=== PATIENT | male | born 1930 | race Caucasian/White ===

== ENCOUNTER 2016-05-08 09:13 | Emergency (ER) | payer MEDICARE, MEDICAID ==
[~2016-05-08 09:13] MED LIST: ACET-1890 PO; AMLO5TAB2 PO; ATOR20TA65 PO; BISA10SU61 RC; CALC500T3 PO; CARV6.25 PO; CEPH500T PO; CLOP75TA3 PO; DOCU250C2 PO; GABA-500 PO; GLYC1SUP RC; HYDR-4003 PO; IPRA3AMP IH; ISOS30TA4 PO; MAGN400O4 PO; NA P133E23 RC; NEPHVIT PO; OXYC10TA8 PO; OXYC5TAB72 PO; PANT40TA2 PO; POLY17PO6 PO; SENN8.6C6 PO; SEVE800T7 PO; SYMINH IH; ZINC50TA4 PO; [UNRECOGNIZED DRUG - CODE] PO; [UNRECOGNIZED DRUG - CODE] PO; [UNRECOGNIZED DRUG - CODE] PO
[2016-05-08 09:26] VITALS: BP 165/65; RESP 16; O2SAT 97
--- NOTE | 2016-05-08 09:43 | ED.REPORT ---
HPI-General Illness Date of Service May 08, 2016 ED Provider: Liam Keller MD Patient is an 86 year old male who presents to the ED via EMS complaining of an episode of dysphagia onset this morning. He is giving conflicting reports about the incident. In his first description, he was eating a breakfast of oatmeal and toast when he couldn't swallow his breakfast. In his second description, he was getting ready to eat but hadn't yet started when he had trouble swallowing. He reports that he is feeling fine now and has had similar symptoms previously. He denies fever, throat pain, shortness of breath, or any other symptoms. He may have been coughing but is not sure. Patient is due for dialysis this morning. Per nursing staff, he could not swallow his pills this morning. He had a swallow evaluation done at [facility] a few days ago. Nursing Notes Stated Complaint: DIFFICULTY SWALLOWING Chief Complaint: ENT & Mouth Nursing Notes Reviewed: Yes ([employer], meds not reconciled) Allergies: Coded Allergies: No Known Allergies (Verified Allergy, Unknown, 01/11/15) Scheduled Amlodipine (Amlodipine) 5 Mg Tablet 5 MG PO BID Hold if BP<90/x, or P<50. Hold med x 1 dose. Aspirin (Lo-Dose Aspirin EC) 81 Mg Tablet.dr 162 MG PO DAILY Atorvastatin Calcium (Atorvastatin Calcium) 20 Mg Tablet 20 MG PO HS Budesonide/Formoterol 160-4.5 mcg Inh (Symbicort 160-4.5 mcg Inh) 1 Puff Inha 2 PUFF IH BID rinse and spit following use. Carvedilol (Coreg) 6.25 Mg Tablet 6.25 MG PO BID If BP<90/x, P<50, hold med x1 dose. Cephalexin (Cephalexin) 500 Mg Tablet 500 MG PO TID Clopidogrel Bisulfate (Plavix) 75 Mg Tablet 75 MG PO DAILY Cyanocobalamin (Vitamin B-12) 500 Mcg Tab 1,000 MCG PO DAILY Docusate Sodium (Docusate Sodium) 250 Mg Capsule 250 MG PO BID Gabapentin (Gabapentin) 100 Mg Capsule 100 MG PO BID Isosorbide MN ER (Isosorbide MN ER) 30 Mg Tab.er.24h 30 MG PO DAILY Nut.tx.impaired Renal Fxn,Soy (Nepro) 237 Ml Liquid 237 ML PO TID Pantoprazole DR (Protonix) 40 Mg Tablet.dr 40 MG PO DAILY Sennosides (Senna) 8.6 Mg Capsule 17.2 MG PO BID Sevelamer Carbonate (Renvela) 800 Mg Tablet 800 MG PO TID Vitamin B Complex/Vit C (Aurelia-Rustam Tablet) 1 Tab Tab 1 TAB PO DAILY Zinc Gluconate (Zinc) 50 Mg Tablet 50 MG PO DAILY oxyCODONE (oxyCODONE) 10 Mg Tablet 10 MG PO DAILY Scheduled PRN Acetaminophen (Tylenol) 325 Mg Tablet 325-650 MG PO Q4 PRN PRN For Pain 1 tablet every 4 hours as needed for pain 1-4/10. 2 tablets every 4 hours as needed for pain 5-1010. NTE 4grams/24hours. Bisacodyl (Dulcolax Rectal) 10 Mg Supp.rect 10 MG RC DAILY PRN PRN For Constipation if no BM x 12 shifts. Step 2 in bowel program. Calcium Carbonate (Calcium Carbonate) 500 Mg Tablet 1,000 MG PO Q4 PRN PRN For Indigestion Glycerin (Glycerin) 1 Each Supp.rect 1 EACH RC DAILY PRN PRN For Constipation Hydrocodone-Acetaminophen 5-325 mg (Hydrocodone-Acetaminophen 5-325 mg) 1 Each Tablet 1-2 EACH PO Q4-6H PRN PRN tooth pain Ipratropium/Albuterol Sulfate (Iprat-Albut 0.5-3(2.5) mg/3 mL Inhalant Soln) 3 Ml Ampul.neb 3 ML IH Q4 PRN PRN For Shortness of Breath Magnesium Hydroxide (Milk of Magnesia) 400 Mg/5 Ml Oral.susp 30 ML PO DAILY PRN PRN For Constipation if no BM x 9 shifts. Step 1 in bowel program. Na Phos,M-B/Na Phos,Di-Ba (Fleet Enema) 133 Ml Enema 133 ML RC DAILY PRN PRN For Constipation if no BM x 15 shifts. Step 3 in bowel program. Polyethylene Glycol 3350 (Miralax) 17 Gm Powd.pack 17 GM PO DAILY PRN PRN For Constipation oxyCODONE (oxyCODONE) 5 Mg Tablet 5 MG PO Q6 PRN PRN For Pain General Time Seen by MD: 09:25 Chief Complaint Other (Dysphagia) Hx Obtained From: Patient Arrived By: Ambulance Sudden in Onset?: Yes Onset Occurred: Just prior to arrival Similar Sx Previous: Yes Past Medical History Past Medical History Notes: PCP Dr. Siegel Past Medical History ESRD on dialysis M,W,F (AV fistula in LUE) TIA Peripheral Vascular Disease with bilateral Internal Carotid Artery disease COPD with severe emphysematous changes on chest CT in 06/2013 Chronic lung disease with fibrotic change specified in right chest on chest CT in 06/2013 CAD with h/o NSTEMI and 2 x drug-eluting stents placed in LAD on 05/26/[address] Clari Elizabeth -Echocardiogram performed 08/07/2013 showed an EF of 60-65%, and moderate dilatation of the left atrium Anemia of chronic disease secondary to renal failure Osteoporosis with pathological vertebral compression fractures. Urinary retention secondary to prostatism. Sepsis in 07/2013 Hyperlipidemia Hypertension Dementia possibly secondary to probable vascular dementia given h/o TIA Resting tremor Left hip fracture in 05/2013 Reports: Dementia Past Surgical History AV fistula in LUE Left hip fracture repair Family History noncontributory Smoking History Former Smoker Social History Patient is DNR with limited interventions per nae MAHONEY at [facility] Alcohol Use: Denies alcohol use Drug Use: Denies drug use Other Social History: Good social support, Lives [facility] [place] [facility], Local resident Ambulatory Status Independent Review of Systems Full Review of Systems Constitutional: Denies: Fever Ears / Nose / Throat: Denies: Throat pain Respiratory: Reports: Non-productive cough, Denies: Shortness of breath GI: Reports: Dysphagia Complete sys rev & neg: except as marked. Physical Exam Vital Signs Vital Signs Date Time Temp Pulse Resp B/P Pulse Ox O2 Delivery O2 Flow Rate FiO2 05/08/16 11:37 54 16 183/71 96 Room Air 05/08/16 09:26 36.4 56 16 165/65 97 Room Air Initial VS: Reviewed, Unavailable (none on chart, ordered), Vital signs normal General/Constitutional: Well-developed, Well-nourished Head / Eyes: Atraumatic, Normocephalic Neck: Full range of motion Respiratory: Breath sounds normal, Clear to auscultation Abdomen / GI: Soft, Non-tender Skin: Warm, Dry Cardiovascular: Heart rate NL Heart Sounds / Murmur: Positive: Murmur present... (III/) Wrist / Hand: Atraumatic Thrill in L wrist Neurologic: Speech NL Demented Re-Eval/Medical Decision Med Decision/Clinical Course This is an 86-year-old male who had a possible choking spell while eating his pills and breakfast this morning. Patient lives at [facility], has dementia and cannot give a useful history here. He has no complaints when I enter the room. He has normal vitals and no hypoxia.. There has been concerns about some dysphagia, and the patient's recently recovered from a right lower lobe pneumonia-to turns out the patient recently underwent a swallow study 2 days ago as an outpatient that revealed some vallecular pooling, but no mechanical stricture or obstruction. The speech recommendations also included follow-up with a dentist in improved dentures. It is not clear if the information had been conveyed back to the facility, as notes indicate the patient had been updated-but is not clear that his memory as such that it was his memory that was right upon to make sure the information got back to the facility. Here in the department the patient has no complaints and appears well. His lungs are clear. He is not febrile. He is not hypoxic. Therefore there are no findings to indicate a need for a chest radiograph or recurrent antibiotics at this time. Speech the pathology was consulted came and reevaluated him. They agree with the previous recommendations from a few days ago. The patient scheduled for routine dialysis today that appointment at [facility] was listed the patient to come to the ED for evaluation-call the [facility] dialysis [facility] and they are able to get him in at 12:30 PM today, so we are now arranging for transfer from the emergency department to dialysis-from dialysis the patient can return to the long term facility. Source of Hx: Old records Summary of Info: Swallow study results: EVALUATION RESULTS: This is a very pleasant 86-year-old male who is seen today for an outpatient modified barium swallow study. Patient noted to have a moderate oral and mild pharyngeal dysphagia characterized by difficulty with oral prep formation and anterior to posterior transit of bolus, pharyngeal residue in the valleculae with barium pill needing a followup liquid rinse to clear. No aspiration or penetration noted today. It is recommended this patient follow up with a dentist in order to realign dentures. Diet recommendation was a thin dysphagia mechanical soft diet secondary to ill-fitting dentures and difficulty with oral preparation and formation in anterior to posterior transit. Pills are recommended to be taken with multiple sips of thin liquid, one at a time or one at a time with puree in order to facilitate movement into the esophagus. The results of this evaluation were reviewed with this patient. The patient is in agreement with this plan. Tamera Gill QUALITY COMPLIANCE COORDINATOR 05/04/16 1105 Time of Eval: 10:19 Re-Evaluation/Progress Note: Rechecked patient. Discussed instructions for eating and plan for discharge to dialysis. Patient understands and agrees with plan. All questions addressed at this time. Nursing facility informed of plan. Differential Diagnosis: Negative: Abdominal pain, Acute coronary syndrome, Allergies, G-tube repair/replacement, Malingering, Pneumonia Counseled Regarding: Diagnosis, Need for follow-up, When/why to return to ED Discharge & Departure Primary Impression: Dysphagia Dysphagia type: unspecified Qualified Code: R13.10 - Dysphagia, unspecified Additional Impression: Chronic renal failure Chronic kidney disease stage: stage 5 Qualified Code: N18.5 - Chronic kidney disease, stage 5 Additional Instructions: 1. The patient was seen again in the emergency department by speech therapy for re-evaluation 2. Recent swallowing evaluation and swallow study performed a few days ago was reviewed (It revealed some vallecular pooling, but no mechanical obstruction or stricture) . Speech therapy's recommendations are: A) A thin mechanical soft diet. Pills are recommended to be taken with multiple sips of thin liquid or puree, one at a time to facilitate movement into the esophagus. B) is also strongly recommended the patient follow up with a dentist in order to realign the dentures, as they appear to be feeling poorly and are likely contributing. 3. Return if new or worsening symptoms Referrals: Divya Siegel MD (PCP) Scribe Attestation Portions of this note were transcribed by Malathi Lynn. I, Dr. Keller personally performed the history, physical exam and medical decision-making; I reviewed and confirmed the accuracy of the information in the transcribed note. Signed by: Malathi Lynn 05/08/16, 1020 copies to: Divya Siegel MD, Matthew F MD May 08, 2016 09:43 MALATHI LYNN May 08, 2016 09:44
--- NOTE | 2016-05-08 10:53 | NUR ---
Evaluation completed. Please go to "Notes" then click on "Assessments and Notes" (bottom left corner of screen). Then select appropriate discipline tab on top of screen.
[2016-05-08 11:37] VITALS: BP 183/71; PULSE 54; RESP 16; O2SAT 96
[2016-05-29] MEDS ORDERED: CYAN500 PO (09:20)
[2016-05-29] MEDS ORDERED: CARV3.122 PO (09:20)
[2016-05-29] MEDS ORDERED: ASPI-973 PO (09:20)
[2016-05-29] MEDS ORDERED: FRSM80T PO (09:20)
[2016-05-29] MEDS ORDERED: CETI5TAB28 PO (09:20)
[2016-05-29] MEDS ORDERED: GUAI-844 PO (10:46)
[2016-05-29] MEDS ORDERED: HYDR-3938 PO ×2 (10:47)
[2016-05-29] MEDS ORDERED: LACT1CAP65 PO (10:49)
[2016-05-29] MEDS ORDERED: AMIN30LI33 PO (10:50)
[2016-05-29] MEDS ORDERED: LISI-567 PO (10:51)
[2016-05-29] MEDS ORDERED: LOPE2TAB32 PO (10:52)
[2016-05-29] MEDS ORDERED: [UNRECOGNIZED DRUG - OTHER] PO (10:53)
[2016-05-29] MEDS ORDERED: NITR0.4T6 SL ×2 (10:54→10:55)
[2016-05-29] MEDS ORDERED: SENN-133 PO (10:59)
[2016-06-02] MEDS ORDERED: ASPI-973 PO (10:16)
[2016-06-02] MEDS ORDERED: PANT40TA2 PO (10:16)
[2016-06-02] MEDS ORDERED: LEVO500T16 PO (10:42)
[2016-06-02] MEDS ORDERED: LOSA50TA37 PO (13:17)
== END 2016-05-08 11:39 ==
LOC: EDBD 09:13 → SED 09:13
DX: R13.10 Dysphagia, unspecified (principal); I13.11 Hypertensive heart and chronic kidney disease without heart failure, with stage 5 chronic kidney disease, or end stage renal disease; N18.6 End stage renal disease; I25.10 Atherosclerotic heart disease of native coronary artery without angina pectoris; J44.9 Chronic obstructive pulmonary disease, unspecified; F03.90 Unspecified dementia, unspecified severity, without behavioral disturbance, psychotic disturbance, mood disturbance, and anxiety; E78.5 Hyperlipidemia, unspecified; Z99.2 Dependence on renal dialysis; Z86.73 Personal history of transient ischemic attack (TIA), and cerebral infarction without residual deficits; Z66 Do not resuscitate; Z79.82 Long term (current) use of aspirin; Z87.891 Personal history of nicotine dependence
CPT/HCPCS: 92610; 99283; G8996; G8997; G8998

== ENCOUNTER 2016-07-23 19:02 | Inpatient (IN) | payer MEDICARE, MEDICAID ==
[~2016-07-23] VITALS: Ht 172.7 cm; Wt 50.3 kg
[~2016-07-23 19:02] MED LIST changes: -ACET-1890 PO; +AMIN30LI33 PO; -AMLO5TAB2 PO; +ASPI-973 PO; -BISA10SU61 RC; -CALC500T3 PO; +CARV3.122 PO; -CARV6.25 PO; -CEPH500T PO; +CETI5TAB28 PO; -CLOP75TA3 PO; +CYAN500 PO; -DOCU250C2 PO; +FRSM80T PO; -GLYC1SUP RC; +GUAI-844 PO; +HYDR-3938 PO; -HYDR-4003 PO; +LACT1CAP65 PO; +LEVO500T16 PO; +LISI-567 PO; +LOPE2TAB32 PO; +LOSA50TA37 PO; -MAGN400O4 PO; -NA P133E23 RC; +NITR0.4T6 SL; -OXYC10TA8 PO; -OXYC5TAB72 PO; +SENN-133 PO; -SENN8.6C6 PO; -[UNRECOGNIZED DRUG - CODE] PO; -[UNRECOGNIZED DRUG - CODE] PO; -[UNRECOGNIZED DRUG - CODE] PO; +[UNRECOGNIZED DRUG - OTHER] PO
[2016-07-23 19:13] VITALS: BP 136/52; PULSE 77; RESP 26; O2SAT 95
--- NOTE | 2016-07-23 19:26 | ED.REPORT ---
HPI-Dyspnea / Wheezing Date of Service Jul 23, 2016 ED Provider: Truman Acuña DO Patient is an 86 year old male with a history of COPD, ERSD and reoccuring pneumonia who presents to the ED via EMS due to shortness of breath. Per senior care staff, the patient has had worsening dyspnea over the past few days. EMS found the patient with an O2 sat of 84% on room air, a fever and complaining of chills. The patient complains of glute pain. Patient currently receives dialysis. Nursing Notes Stated Complaint: GENERAL WEAKNESS Chief Complaint: Respiratory Distress Nursing Notes Reviewed: Yes Allergies: Coded Allergies: No Known Allergies (Verified Allergy, Unknown, 01/11/15) Scheduled ([carb steady liquid]) 1 CANNISTER PO DAILY Amino AC/Protein Hydr/Whey Pro (Liquacel Liquid Protein Packet) 16 Gram-90 Kcal/ 30 Ml Liquid.pkt 30 ML PO DAILY Aspirin (Aspirin) 81 Mg Tablet 81 MG PO DAILY Atorvastatin Calcium (Atorvastatin Calcium) 20 Mg Tablet 20 MG PO HS Budesonide/Formoterol 160-4.5 mcg Inh (Symbicort 160-4.5 mcg Inh) 1 Puff Inha 1 PUFF IH BID rinse and spit following use. Carvedilol (Carvedilol) 3.125 Mg Tablet 3.125 MG PO BID Cetirizine (Cetirizine) 5 Mg Tablet 10 MG PO QAM Cyanocobalamin (Vitamin B12) 500 Mcg Tablet 1,000 MCG PO QAM Gabapentin (Gabapentin) 100 Mg Capsule 100 MG PO BID Isosorbide MN ER (Isosorbide MN ER) 30 Mg Tab.er.24h 30 MG PO QAM Lactobacillus Acidophilus (Probiotic) 1 Each Capsule 1 EACH PO QAM Lisinopril (Lisinopril) 20 Mg Tablet 20 MG PO QAM HOLD FOR SBP < 100 MM HG Mirtazapine (Mirtazapine) 7.5 Mg Tablet 7.5 MG PO HS Pantoprazole DR (Protonix) 40 Mg Tablet.dr 40 MG PO BID Vitamin B Complex/Vit C (Aurelia-Rustam Tablet) 1 Tab Tab 1 TAB PO QAM Zinc Gluconate (Zinc) 50 Mg Tablet 50 MG PO QAM Scheduled PRN Guaifenesin/Dextromethorphan (Nicole-Tussin Dm Syrup) 100 Mg-10 Mg/5 Ml Syrup 5 ML PO Q4H PRN PRN For Cough Hydralazine (Hydralazine) 10 Mg Tablet 10 MG PO QID PRN PRN For HYPERtension Ipratropium/Albuterol Sulfate (Iprat-Albut 0.5-3(2.5) mg/3 mL Inhalant Soln) 3 Ml Ampul.neb 3 ML IH Q4 PRN PRN For Shortness of Breath Loperamide (Loperamide) 2 Mg Tablet 4 MG PO Q6H PRN PRN For Diarrhea or Loose Stool Nitroglycerin SL (Nitroglycerin SL) 0.4 Mg Tab.subl 0.4 MG SL Q5MIN PRN PRN For Chest Pain Polyethylene Glycol 3350 (Miralax) 17 Gm Powd.pack 17 GM PO DAILY PRN PRN For Constipation Sennosides (Senna) 8.6 Mg Tablet 17.2 MG PO BID PRN PRN For Constipation General Time Seen by MD: 19:26 Chief Complaint Shortness of breath Hx Obtained From: Patient, EMS Arrived By: Ambulance Sudden in Onset?: No Onset Occurred: 3 days ago Symptom Duration: Since onset Location: : None Radiation: : Does not radiate Recent Healthcare: Recent doctor visit, Recent hospitalization Similar Sx Previous: Yes Past Medical History Past Medical History Notes: PCP Dr. Siegel Technical Instructor Dr. Lowe CODE STATUS: DNAR, DNI Past Medical History ESRD on dialysis M,W,F (AV fistula in LUE) TIA Peripheral Vascular Disease with bilateral Internal Carotid Artery disease Stable angina COPD with severe emphysematous changes on chest CT in 06/2013 Chronic lung disease with fibrotic change specified in right chest on chest CT in 06/2013 CAD with h/o NSTEMI and 2 x drug-eluting stents placed in LAD on 05/26/[address] Clari Elizabeth -Echocardiogram performed 08/07/2013 showed an EF of 60-65%, and moderate dilatation of the left atrium Anemia of chronic disease secondary to renal failure Osteoporosis with pathological vertebral compression fractures. Urinary retention secondary to prostatism. Sepsis in 07/2013 Hyperlipidemia Hypertension Dementia possibly secondary to probable vascular dementia given h/o TIA Resting tremor Left hip fracture in 05/2013 Seasonal allergies Reports: GERD Reports: Dementia Past Surgical History AV fistula in LUE Left hip fracture repair Family History noncontributory Smoking History Former Smoker Social History Patient is DNR with limited interventions per nae MAHONEY at [facility] Alcohol Use: Denies alcohol use Drug Use: Denies drug use Other Social History: Good social support, Lives in senior care, Local resident Ambulatory Status Independent Review of Systems Constitutional: Reports: Chills, Fever, Weakness - generalized Respiratory: Reports: Dyspnea on exertion, Shortness of breath, Denies: Non-productive cough Cardiovascular: Denies: Chest pain Musculoskeletal: Reports: Extremity pain Complete sys rev & neg: except as marked. Physical Exam Initial Vital Signs Vital Signs (First) Date Time Temp Pulse Resp B/P Pulse Ox O2 Delivery O2 Flow Rate FiO2 07/23/16 19:13 37.6 77 26 136/52 95 Nasal Cannula 4 Initial VS: Reviewed Alertness: Positive: Somnolent Appearance / Presentation: Positive: Frail follow commands Neck: Atraumatic, Supple Respiratory / Chest: Atraumatic, No respiratory distress mild crackling in lungs Cardiovascular: Heart rate NL, Regular rhythm, Heart sounds NL Abdomen: Atraumatic, Soft, Non-tender Skin: Atraumatic, Color NL, No rash, Warm, Dry Neurologic: Oriented X3, Speech NL Head / Eyes: Atraumatic, Normocephalic, PERRL, EOMI Psychiatric: Affect NL, Mood NL Interpretation & Diagnostics Lab Results Interpretation Result Diagram: 07/23/16194407/23/161944 Test 07/23/16 19:45 White Blood Count 7.9th/mm3 (3.8-10.1) Red Blood Count 3.53mil/mm3 (4.40-5.80) Hemoglobin 11.0g/dL (13.8-17.2) Hematocrit 33.5% (41.0-50.0) Mean Corpuscular Volume 94.9fL (81-100) Mean Corpuscular Hemoglobin 31.2pg (27.0-35.0) Mean Corpuscular Hemoglobin Concent 32.8% (32.0-37.0) Red Cell Distribution Width 13.7% (12.3-15.4) Platelet Count 100bil/L (150-400) Neutrophils (%) (Auto) 75.8% (40-74) Lymphocytes (%) (Auto) 15.9% (14-46) Monocytes (%) (Auto) 5.3% (4-12) Eosinophils (%) (Auto) 2.3% (0-5) Basophils (%) (Auto) 0.6% (0-3) Sodium Level 131mEq/L (134-144) Potassium Level 4.3mEq/L (3.5-5.2) Chloride Level 91mEq/L (97-108) Carbon Dioxide Level 29mmol/L (18-29) Blood Urea Nitrogen 53mg/dL (8-27) Creatinine 4.50mg/dL (0.76-1.27) Estimat Glomerular Filtration Rate 13mL/min (>59) Glucose Level 109mg/dL (60-99) Lactic Acid Level 0.8mmol/L (0.4-2.0) Calcium Level 8.4mg/dL (8.5-10.1) Total Bilirubin 0.4mg/dL (0.0-1.2) Aspartate Amino Transf (AST/SGOT) 34U/L (0-50) Alanine Aminotransferase (ALT/SGPT) 20U/L (0-44) Alkaline Phosphatase 189U/L (25-160) Troponin T 0.133ug/L (0.0-0.011) Pro-B-Type Natriuretic Peptide 18324ph/mL (0-486) Total Protein 6.0g/dL (6.4-8.4) Albumin 3.0g/dL (3.4-5.0) Procalcitonin 0.33ng/mL (0.00-0.08) Hold Beck Top Tube Received (Received) ECG Interpretation ECG Interpretation: LBBB Time: 19:36 Normal ECG Interpretation: Normal rate (73), Normal sinus rhythm X-Ray Chest Interpretation Chest Xray Interpretation: IMPRESSION: 1. Bilateral pleural effusions, left greater than right, with compressive atelectasis or consolidation in the lung bases. 2. Increased pulmonary edema. Dictated by: Nate Zabala M.D. on 07/23/2016 at 21:32 Approved by: Nate Zabala M.D. on 07/23/2016 at 21:34 View: Portable, 1 view Interpretation / Wet Read by: Interpret - Radiologist Re-Eval/Medical Decision Med Decision/Clinical Course 86-year-old male was sent in for fever and hypoxia. He is found to be ill in appearance. He has crackly lungs bilaterally. He is slow to respond but he will wake up and answer questions. Diagnostics are consistent with pneumonia and pleural effusion. There is also in the morning of vascular congestion. Laboratory work showed chronic renal insufficiency and elevated pro calcitonin. He will be admitted to the hospitalist service. Broad spectrum antibiotics. Careful fluid resuscitation in the emergency department brought his blood pressure up nicely. He was admitted in stable condition. Re-Evaluation/Progress : Time of Eval: 22:27 Re-Evaluation/Progress Note: Discussed results and plan for admit. The patient understands and agrees to the plan. All questions were addressed. Consultation : Referral / Consult Name: Mari Estrada DO Consulted With: Hospitalist Call Returned at: 23:18 Armoured Car Escort: Agrees with eval, Agrees with plan, Accepts admit Counseled Regarding: Diagnosis, Lab results, Need for admission Discharge & Departure Impression: Primary Impression: Pneumonia Pneumonia type: due to unspecified organism Laterality: unspecified laterality Lung location: unspecified part of lung Qualified Code: J18.9 - Pneumonia, unspecified organism Additional Impression: Hypertension Hypertension type: unspecified secondary hypertension Qualified Code: I15.9 - Secondary hypertension, unspecified Disposition: ADMITTED TO HOSPITAL Discharge Condition All VS Reviewed: Yes Condition: Stable Referrals: Divya Siegel MD (PCP) Scribe Attestation Portions of this note were transcribed by Padmini Eastman. I, Dr. Acuña personally performed the history, physical exam and medical decision-making; I reviewed and confirmed the accuracy of the information in the transcribed note. Signed by: Padmini Austin, 07/23/16 and 2019 copies to: Divya Siegel MD, Todd P DO Jul 23, 2016 19:26 Liz Eastman Jul 23, 2016 20:17
[2016-07-23] MEDS ORDERED: Piperacillin-Tazo 3.375 Gm Inj 3.375 GM in Dextrose 5% Minibag Plus 50 ML IV ONE ×2 (19:40→21:05)
[2016-07-23 20:02] LABS: BASOPHILS % (AUTO) 0.6 % (0-3); NEUTROPHILS % (AUTO) 75.8 % (40-74)
[2016-07-23 20:07] LABS: EOSINOPHILS % (AUTO) 2.3 % (0-5); MONOCYTES % (AUTO) 5.3 % (4-12); Mean Corpuscular Hemoglobin 31.2 pg (27.0-35.0); Mean Corpuscular Volume 94.9 fL (81-100); Platelet Count 100 bil/L (150-400)
[2016-07-23 20:28] LABS: TROPONIN T 0.133 ug/L (0.0-0.011)
[2016-07-23 21:02] VITALS: BP 99/37; PULSE 68; RESP 22; O2SAT 95
[2016-07-23] MEDS ORDERED: 0.9% Sodium Chloride 500 ML IV ONE (21:05)
--- NOTE | 2016-07-23 21:36 | DRSVH ---
PROCEDURE: X-RAY CHEST ONE VIEW, PORTABLE ([id number]) INDICATIONS: SHORT OF BREATH TECHNIQUE: One view of the chest was acquired. COMPARISON: [facility], CR, XR CHEST 1VW (PORTABLE), 06/01/2016, 7:28. FINDINGS: Surgical changes and devices: None. Lungs and pleura: The patient's medial lung apices are partially obscured by neck soft tissues. The re are bilateral pleural effusions, small to moderate on the left on the right, with associated bibas ilar compressive atelectasis or consolidation. There is increased pulmonary vascular prominence comp atible with pulmonary edema. Mediastinum: Mediastinal contours appear unchanged. Heart size is enlarged. Bones and chest wall: No suspicious bony lesions. Overlying soft tissues appear unremarkable. IMPRESSION: 1. Bilateral pleural effusions, left greater than right, with compressive atelectasis or consolidati on in the lung bases. 2. Increased pulmonary edema. Dictated by: Nate Zabala M.D. on 07/23/2016 at 21:32 Approved by: Nate Zabala M.D. on 07/23/2016 at 21:34
[2016-07-23 21:46] VITALS: BP 118/33; PULSE 64; RESP 22; O2SAT 97
[2016-07-23 22:11] VITALS: BP 119/39; PULSE 69; RESP 20; O2SAT 99
[2016-07-23 22:39] VITALS: BP 120/47; PULSE 72; RESP 22; O2SAT 97
[2016-07-23] MEDS ORDERED: Alum-Mag Hydrox-Simeth 30 mL Suspension PO PRN ×2 (23:35→23:45)
[2016-07-23] MEDS ORDERED: Ondansetron 2 mg/mL 2 mL Inj IVPUSH PRN (23:35)
[2016-07-23] MEDS ORDERED: Polyethylene Glycol (PEG) 17 Gm Powder PO PRN (23:45)
[2016-07-23] MEDS ORDERED: MIRT7.5T8 PO (23:58)
[2016-07-23] MEDS ORDERED: LISI-567 PO (23:58)
[2016-07-24] VITALS (14 sets, daily range): BP systolic 102–175; BP diastolic 48–80; PULSE 69–86; RESP 16–36; O2SAT 84–95
--- NOTE | 2016-07-24 00:39 | PCM.HPMED ---
Subjective Date of Service Jul 24, 2016 Primary Provider: Admitting Physician: Mari Estrada DO Primary Care Physician: Divya Siegel MD Attending Physician: Mari Estrada DO Admit Status: From the Emergency Department Chief Complaint: Chills and Cough History of Present Illness: 86-year-old male with recent past medical history remarkable for erosive esophagitis and pneumonia in May 2016 presents with worsening cough for 2 days and subjective chills for 1 day from [facility]. The patient states that the cough is described as productive but he denies any chest pain or pain with inspiration. The patient cannot ascribe any changes to the sputum at this time. The patient states that he also began to notice chills beginning today. The patient is unaware of any recent fevers. The patient is on chronic home O2 therapy which is used sporadically throughout the day. The patient denies headache, sore throat, chest or abdominal pain, nausea vomiting or diarrhea. Review of Systems: A comprehensive review of systems was obtained and all are negative except for what is included in the HPI. Allergies Coded Allergies: No Known Allergies (Verified Allergy, Unknown, 01/11/15) Home Medications Aspirin (Aspirin) 81 MG PO DAILY Atorvastatin Calcium 20 MG PO HS Budesonide/Formoterol 160-4.5 mcg Inh (Symbicort 160-4.5 mcg Inh) 1 Puff Inha 1 PUFF IH BID Carvedilol 3.125 MG PO BID Cetirizine 10 MG PO QAM Cyanocobalamin 1,000 MCG PO QAM Gabapentin 100 MG PO BID Isosorbide MN ER 30 MG PO QAM Lactobacillus Acidophilus (Probiotic) 1 Each Capsule 1 EACH PO QAM Lisinopril (Lisinopril) 20 Mg Tablet 20 MG PO QAM HOLD FOR SBP < 100 MM HG Mirtazapine 7.5 MG PO HS Pantoprazole DR 40 MG PO BID Vitamin B Complex/Vit C (Aurelia-Rustam Tablet) 1 Tab Tab 1 TAB PO QAM Zinc Gluconate (Zinc) 50 Mg Tablet 50 MG PO QAM Guaifenesin/Dextromethorphan (Nicole-Tussin Dm Syrup) 100 Mg-10 Mg/5 Ml Syrup 5 ML PO Q4H PRN PRN For Cough Hydralazine 10 MG PO QID PRN For HYPERtension Ipratropium/Albuterol Sulfate 3 ML IH Q4 PRN For Shortness of Breath Loperamide 4 MG PO Q6H PRN PRN For Diarrhea or Loose Stool Nitroglycerin SL 0.4 MG SL Q5MIN PRN PRN For Chest Pain Polyethylene Glycol 17 GM PO DAILY PRN PRN For Constipation Sennosides 17.2 MG PO BID PRN PRN For Constipation [facility] Records indicate the patient is also on Lisinopril 5 mg daily Amlodipine 2.5 mg daily Carvedilol 6.25 mg daily Clopidogrel 75 mg daily PMH upper GI bleed with severe erosive esophagitis, Multiple esophageal ulcers in May 2016 acute encephalopathy, likely metabolic with infection, GIB mild troponemia secondary to ESRD Community acquired pneumonia May 2016 Hypertension uncontrolled ESRD on HD,M,W,F (AV fistula in LUE) History of TIA Peripheral Vascular Disease with bilateral Internal Carotid Artery disease Stable angina COPD with severe emphysematous changes on chest CT in 06/2013 Anemia of chronic disease secondary to renal failure Osteoporosis with pathological vertebral compression fractures. Urinary retention secondary to prostatism. Sepsis in 07/2013 Hyperlipidemia Dementia possibly secondary to probable vascular dementia given h/o TIA Resting tremor Left hip fracture in 05/2013 Seasonal allergies GERD Dementia Surgical History AV fistula in LUE Left hip fracture repair Family History Reports both parents are still alive in their 100s in [facility] 4 siblings including 2 brothers and 2 sisters with unknown health conditions Social History Occupation: retired Hx Alcohol Use: Yes ([employer] [facility]) Hx Substance Use: No Smoking Status: Former Smoker (Quit in 1975) Years of Smokin Living Arrangement: Assisted Facility ([place]) Exam Vital Signs Vital Sign - Last Date Time Temp Pulse Resp B/P Pulse Ox O2 Delivery O2 Flow Rate FiO2 07/24/16 00:01 69 07/23/16 22:39 36.6 22 120/47 97 Nasal Cannula 3 Intake and Output 07/23/16 07/23/16 07/24/16 Cumulative From/Thru 15:00 23:00 07:00 07/23/16 19:52 - 07/24/16 00:07 Intake Total 500 ml 500 ml Balance 500 ml 500 ml Intake IV Total 500 ml 500 ml Exam Gen.: elderly cachectic male in no acute distress lying comfortably in bed, Alert to self only, knows he is in [facility] and knows Matthieu Lara is the [facility], believes it is May 2016 Eyes: Pupils equal round and reactive to light, extraocular motion intact anicteric sclera noninjected conjunctiva HENT: Normocephalic atraumatic, moist mucous membranes without central cyanosis , with mild erythematous oropharynx without cobblestoning mucosa Neck: Supple, trachea midline, no JVD Cardiovascular: Regular rate and rhythm, no murmurs rubs or gallops noted, PMI nondisplaced Lungs: Decreased breath sounds in all lung meza worse in the bases with course expiratory rhonchi bilaterally clearing with cough without wheezing Abdomen: nontender, normal active bowel sounds, nondistended, tympanic to percussion Extremities: Pulses intact at radial and dorsalis pedis bilaterally, fistula noted in the left upper extremity with bruit and without overlying erythema or tenderness Skin: Warm and dry : No Virgen in place Neuro: No focal neurologic deficits Psych: Normal mood and affect Lab and Diagnostics Result Diagram: 07/23/16194407/23/161944 X-Rays, CTs and MRIs X-RAY CHEST ONE VIEW, PORTABLE IMPRESSION: 1. Bilateral pleural effusions, left greater than right, with compressive atelectasis or consolidation in the lung bases. 2. Increased pulmonary edema. Dictated by: Nate Zabala M.D. on 07/23/2016 at 21:32 Approved by: Nate Zabala M.D. on 07/23/2016 at 21:34 Cardiac Echo Impressions Echocardiogram Report from 06/02/2016 Interpretation Summary The ejection fraction is estimated to be 60-65%. The left atrium is severely dilated. The mitral valve leaflets appear mildly thickened, but open well. The aortic valve is slightly calcified. There is mild tricuspid regurgitation. The right ventricular systolic pressure is estimated at 50 mmHg assuming a right atrial pressure of 3 mm Hg. Compared to the prior echo exam, there has been an increase in the severity of pulmonary hypertension. Mildly increased echogenicity of the myocardium is noted, this can sometimes be seen in infiltrative disorders such as amyloidosis. Electronically signed by: Sacha Paul on Reading Physician:06/02/2016 04:43 PM Assessment & Plan 86-year-old male with recent past medical history remarkable for erosive esophagitis and pneumonia in May 2016 presents with worsening cough for 2 days and subjective chills for 1 day from [facility]. # Acute on chronic hypoxic respiratory failure - Patient describes chronic O2 therapy at home used sporadically throughout the day - Echo from 06/02/2016 shows worsening pulmonary hypertension - Report by ED physician notes and EMS found the patient in [place] with a oxygen saturation of 84% on room air - Records indicate the patient has severe COPD on imaging - Nursing to maintain oxygen saturation between 88% and 94% given severe COPD - Avoid oxygen saturation greater than 94% given likely a CO2 retainer # possible healthcare associated pneumonia - Patient was diagnosed with pneumonia in June 01, 2016 and placed on Levaquin - Chest x-ray shows possible bilateral basilar pneumonia left greater than right - Patient is currently negative for SIRS criteria with WBC count 7.9, temperature 37.6, heart rate of 76, respiratory rate 26 - Procalcitonin elevated but indeterminant at 0.33 - Patient started on Zosyn in the ED - Antibiotics to be converted to ceftriaxone 2 g every day and azithromycin 500 mg daily - Legionella urine antigen and strep urine antigen ordered - We will repeat CBC and pro-calcitonin daily # Chronic obstructive pulmonary disease and Chronic pulmonary hypertension - Patient reports subjective increased cough and productive sputum, physical exam fails to reveal wheezing - Continue patient's home Symbicort BID and DuoNeb's QIDWA # Erosive esophagitis - Noted on EGD in May 2016 consistent with either caustic or pill esophagitis on pathology - Continue pantoprazole 40 mg twice a day - Records indicate the patient will require follow up repeat EGD to confirm ulceration healing after August 31 # End stage renal disease - On chronic hemodialysis Sunday schedule - Fistula in left upper extremity appears uninfected - Explains elevated troponins which was previously elevated at last admission - Nephrology services consulted for routine hemodialysis while inpatient # Elevated troponin of unknown significance - Patient denies chest pain - Likely secondary to end-stage renal disease - Records indicate the patient had elevated troponin in May 2016 # Chronic anemia - Secondary to chronic kidney disease - likely near baseline at 11 - Monitor # Thrombocytopenia - Platelets currently 100,000 - near baseline - Monitor chronic conditions # Hyperlipidemia with Peripheral Vascular Disease with bilateral Internal Carotid Artery disease - Continue home Atorvastatin 20 mg at bedtime # Stable angina - Continue home isosorbide mononitrate 30 mg daily # Urinary retention secondary to prostatism. - Monitor I's and O's # Dementia possibly secondary to probable vascular dementia given h/o TIA - Continue Blood pressure control with carvedilol 3.125 mg twice a day and can increase to 6.25 mg twice a day once blood pressure stabilizes - Patient also has prescriptions for amlodipine and lisinopril which may be restarted with increased blood pressure - continue Aspirin therapy 81mg daily - Continue clopidogrel 75 mg daily GI prophylaxis: Protonix 40 mg twice a day DVT prophylaxis: Heparin 5000 units 3 times a day CODE STATUS: DNR/DNI The patient is admitted to inpatient status with likely inpatient stay greater than two midnights given presenting symptoms unlikely diagnosis, possible complications and required treatment. Pain Evaluation: Adequate Pain Control GI Prophylaxis: Proton Pump Inhibitor VTE Prophylaxis Indicated: Meets Criteria for Anticoag Therapy VTE Prophylaxis: Sub-Q Heparin (Unfractionated) Resuscitation Status: DNR/DNI:Do Not Resuscitate/Intubate Attending Statement The patient was seen and examined together with house staff on 07/23/2016 and I agree with the history, exam and plan as outlined in the note above. Fernando Lopez DO Jul 24, 2016 00:39 Mari Estrada DO Jul 24, 2016 06:54
[2016-07-24 02:30] LABS: Unsaturated Iron Binding 60.5 ug/dL
[2016-07-24 03:45] LABS: BASOPHILS % (AUTO) 0.5 % (0-3); EOSINOPHILS % (AUTO) 1.9 % (0-5); MONOCYTES % (AUTO) 4.6 % (4-12); Mean Corpuscular Hemoglobin 31.4 pg (27.0-35.0); Mean Corpuscular Volume 95.3 fL (81-100); NEUTROPHILS % (AUTO) 71.8 % (40-74); Platelet Count 116 bil/L (150-400)
[2016-07-24] MEDS ORDERED: 0.9% Sodium Chloride 250 ML ONE (07:41)
[2016-07-24] MEDS: Heparin 5,000 Unit/mL Inj SUBQ SCH ×3 (08:08→23:46)
[2016-07-24] MEDS: Fluticasone-Salmererol 250-50 Inhaler INHALATION SCH ×2 (08:08→21:28)
[2016-07-24] MEDS: Pantoprazole 40 mg ER24 Tablet PO SCH ×2 (08:30→21:28)
[2016-07-24] MEDS: Albuterol-Ipratropium 3 mL Inhalation Solution NEB SCH ×4 (09:24→20:33)
[2016-07-24] MEDS: cefTRIAXone Inj 2,000 MG in Dextrose 5% Minibag Plus 50 ML IV SCH (11:55)
--- NOTE | 2016-07-24 13:53 | PCM.CHPMED ---
Subjective Date of Service: Jul 24, 2016 Provider requesting consult: Francisco Boland MD Primary Physician: Admitting Physician: Mari Estrada DO Primary Care Physician: Divya Siegel MD Attending Physician: Mari Estrada DO Chief Complaint: Chief Complaint: Nephrology Service [facility] PGY2 and attending Francisco Cano Consultation: ESRD requiring hemodialysis History of Present Illness: Patient is an 86yom with MHx significant for dementia, severe COPD, pulmonary hypertension and CKD/hemodialysis presented overnight with cough, chills, hypoxic, and radiographic finding suspicious for pneumonia. Nephrology has been consulted for CKD/dialysis. Patient unable to recall significant health history and is a poor historian. He does confirms that he has been coughing for the past 2 days. Though, denies any fever, chills, or night sweats. Per chart review, patient has history of dysphagia, esophagitis on Protonix. He was recently admitted to [facility] 05/19 for pneumonia. Patient normally dialyzed MWF at [facility]. AV fistula left arm. Review of Systems: Constitutional: Reports: Sweats, Denies: Chills, Fever Cardiovascular: Denies: Chest Pain, SOB on Exertion, SOB while laying flat Respiratory: Reports: Cough, Sputum, Denies: Shortness of Breath Gastrointestinal: Denies: Abdominal Pain, Diarrhea Musculoskeletal: Denies: Back Pain, Swelling Neurological: Reports: Confusion, Denies: Localized Weakness, Numbness PMH Past Medical History Hypertension Dyslipidemia Left hip Fracture in 2013 Osteoporosis History of kidney infection ESRD on hemodialysis Sunday History of urinary retention secondary to prostatitis Severe esophagitis history of community-acquired pneumonia COPD with severe emphysematous type CAD status post stenting PVD with bilateral internal carotid artery disease Dysphagia GERD Chronic anemia, multifactorial Dementia History of TIA Resting tremor Surgical History The fistula in the left upper extremity List of fracture repair Allergies: Coded Allergies: No Known Allergies (Verified Allergy, Unknown, 01/11/15) Social History Occupation: retired Hx Alcohol Use: NoHx Substance Use: No Smoking Status: Former Smoker (Quit in 1975) Years of Smokin Living Arrangement: [facility] Facility ([place]) Exam Vital Signs Vital Sign - Last Date Time Temp Pulse Resp B/P Pulse Ox O2 Delivery O2 Flow Rate FiO2 07/24/16 13:02 75 6/12/17 09:24 20 90 Nasal Cannula 1.00 07/24/16 08:30 37.0 105/50 Intake and Output 07/23/16 07/23/16 07/24/16 Cumulative From/Thru 15:00 23:00 07:00 07/23/16 19:52 - 07/24/16 05:31 Intake Total 500 ml 500 ml Balance 500 ml 500 ml Intake IV Total 500 ml 500 ml General: Alert (oriented to place and self) Head: Normal Eyes: PERRLA, EOMI, Scleral Anicteric Mouth: Mucous Membranes Dry Neck: No Thyromegaly Chest & Lungs: Coarse breath sounds (bilateral in the lower basis) Cardiovascular: Regular Rate/Rhythm, Normal S1, Normal S2 Abdomen: Non-tender, Non-distended Genitourinary: Virgen Absent Extremities: No cyanosis/clubbing/edma bilat Skin: Other (positive skin turgor, suggestive of dehydration) Lab and Diagnostics Result Diagram: 07/24/16 0330 07/24/16 0330 X-Rays, CTs and MRIs PROCEDURE: X-RAY CHEST ONE VIEW, PORTABLE ([id number]) INDICATIONS: SHORT OF BREATH IMPRESSION: 1. Bilateral pleural effusions, left greater than right, with compressive atelectasis or consolidation in the lung bases. 2. Increased pulmonary edema. Dictated by: Nate Zabala M.D. on 07/23/2016 at 21:32 Assessment & Plan Assessment Pt 86yom with MHx significant for dementia, dysphagia, severe COPD and CKD on HD admitted for pneumonia. Problem list # Chronic kidney disease on hemodialysis # Normocytic anemia, multifactorial # Hypertension with hypertensive nephrosclerosis. # Chronic obstructive pulmonary disease # Hospital-acquired pneumonia Plan # Dialysis today, no fluid removal as patient is likely volume depleted # Next HD on Sunday. # Renally dose medications. Patient was seen and examined. Case discussed with resident. Agreed with assessment and plan as above. Thank you for allowing me to participate in the care of your patient. Danny Matthews MD Pg [phone] Problems: Pain Evaluation: Adequate Pain Control GI Prophylaxis: Proton Pump Inhibitor VTE Prophylaxis Indicated: Meets Criteria for Anticoag Therapy VTE Prophylaxis: Sub-Q Heparin (Unfractionated) VTE Mechanical Devices: Intermittant Pneumatic CD Resuscitation Status: DNR/DNI:Do Not Resuscitate/Intubate Shade Mak DO Jul 24, 2016 13:53 Francisco Boland MD Jul 24, 2016 19:02
--- NOTE | 2016-07-24 16:28 | PCM.PNMED ---
Subjective Date of Service Jul 24, 2016 Subjective He is very somnolent really answers very few questions other than denying pain. He denies any shortness of breath as well. No overnight events. Exam Vital Signs Vital Sign - Last Date Time Temp Pulse Resp B/P Pulse Ox O2 Delivery O2 Flow Rate FiO2 07/24/16 16:02 36.7 81 36 163/70 91 Nasal Cannula 1.00 Intake and Output 07/23/16 07/23/16 07/24/16 Cumulative From/Thru 15:00 23:00 07:00 07/23/16 19:52 - 07/24/16 05:31 Intake Total 500 ml 500 ml Balance 500 ml 500 ml Intake IV Total 500 ml 500 ml Exam Patient is chronically ill. Cachectic. Lethargic. Lungs are clear to auscultation with normal effort. Heart is regular with a 3/6 systolic murmur. Abdomen is flat and nontender Extremities are free of edema with good pedal pulses. Patient has multiple ecchymosis. IVs and Medications Medications Reviewed: Medications were reviewed in detail Lab and Diagnostics Result Diagram: 07/24/16 0330 07/24/16 0330 X-Rays, CTs and MRIs X-RAY CHEST ONE VIEW, PORTABLE IMPRESSION: 1. Bilateral pleural effusions, left greater than right, with compressive atelectasis or consolidation in the lung bases. 2. Increased pulmonary edema. Dictated by: Nate Zabala M.D. on 07/23/2016 at 21:32 Approved by: Nate Zabala M.D. on 07/23/2016 at 21:34 Cardiac Echo Impressions Echocardiogram Report from 06/02/2016 Interpretation Summary The ejection fraction is estimated to be 60-65%. The left atrium is severely dilated. The mitral valve leaflets appear mildly thickened, but open well. The aortic valve is slightly calcified. There is mild tricuspid regurgitation. The right ventricular systolic pressure is estimated at 50 mmHg assuming a right atrial pressure of 3 mm Hg. Compared to the prior echo exam, there has been an increase in the severity of pulmonary hypertension. Mildly increased echogenicity of the myocardium is noted, this can sometimes be seen in infiltrative disorders such as amyloidosis. Electronically signed by: Sacha Paul on Reading Physician:06/02/2016 04:43 PM Assessment & Plan 86-year-old male with recent past medical history remarkable for erosive esophagitis and pneumonia in May 2016 presents with worsening cough for 2 days and subjective chills for 1 day from [facility]. # Acute on chronic hypoxic respiratory failure, POA. - Patient describes chronic O2 therapy at home used sporadically throughout the day - Echo from 06/02/2016 shows worsening pulmonary hypertension - Report by ED physician notes and EMS found the patient in [place] with a oxygen saturation of 84% on room air - Records indicate the patient has severe COPD on imaging - Nursing to maintain oxygen saturation between 88% and 94% given severe COPD - Avoid oxygen saturation greater than 94% given likely a CO2 retainer No changes to this plan. The patient was dialyzed and this helps with any fluid overload component. # possible community-acquired pneumonia versus aspiration., POA. - Patient was diagnosed with pneumonia in June 01, 2016 and placed on Levaquin - Chest x-ray shows possible bilateral basilar pneumonia left greater than right - Patient is currently negative for SIRS criteria with WBC count 7.9, temperature 37.6, heart rate of 76, respiratory rate 26 - Procalcitonin elevated but indeterminant at 0.33 - Patient started on Zosyn in the ED - Antibiotics to be converted to ceftriaxone 2 g every day and azithromycin 500 mg daily - Legionella urine antigen and strep urine antigen ordered - We will repeat CBC and pro-calcitonin daily No changed antibodies, follow clinically. # Chronic obstructive pulmonary disease and Chronic pulmonary hypertension, POA. No evidence of exacerbation. - Patient reports subjective increased cough and productive sputum, physical exam fails to reveal wheezing - Continue patient's home Symbicort BID and DuoNeb's QIDWA # Erosive esophagitis, chronic POA. - Noted on EGD in May 2016 consistent with either caustic or pill esophagitis on pathology - Continue pantoprazole 40 mg twice a day - Records indicate the patient will require follow up repeat EGD to confirm ulceration healing after August 31 # End stage renal disease, hemodialysis dependent. POA. - On chronic hemodialysis Sunday schedule - Fistula in left upper extremity appears uninfected - Explains elevated troponins which was previously elevated at last admission - Nephrology services consulted for routine hemodialysis while inpatient # Elevated troponin of unknown significance, POA. - Patient denies chest pain - Likely secondary to end-stage renal disease - Records indicate the patient had elevated troponin in May 2016 # Chronic anemia, POA. - Secondary to chronic kidney disease - likely near baseline at 11 - Monitor # Thrombocytopenia - Platelets currently 100,000 - near baseline - Monitor chronic conditions # Hyperlipidemia with Peripheral Vascular Disease with bilateral Internal Carotid Artery disease - Continue home Atorvastatin 20 mg at bedtime # Stable angina, POA - Continue home isosorbide mononitrate 30 mg daily # Urinary retention secondary to prostatism. - Monitor I's and O's # Dementia possibly secondary to probable vascular dementia given h/o TIA - Continue Blood pressure control with carvedilol 3.125 mg twice a day and can increase to 6.25 mg twice a day once blood pressure stabilizes - Patient also has prescriptions for amlodipine and lisinopril which may be restarted with increased blood pressure - continue Aspirin therapy 81mg daily - Continue clopidogrel 75 mg daily GI prophylaxis: Protonix 40 mg twice a day DVT prophylaxis: Heparin 5000 units 3 times a day CODE STATUS: DNR/DNI The patient is admitted to inpatient status with likely inpatient stay greater than two midnights given presenting symptoms unlikely diagnosis, possible complications and required treatment. GI Prophylaxis: Proton Pump Inhibitor VTE Prophylaxis: Sub-Q Heparin (Unfractionated) VTE Mechanical Devices: Intermittant Pneumatic CD Resuscitation Status: DNR/DNI:Do Not Resuscitate/Intubate Daron Jaime MD Jul 24, 2016 16:28
[2016-07-24] MEDS: Isosorbide Mononitrate 30 mg ER24 Tablet PO SCH (17:00)
[2016-07-25] VITALS (13 sets, daily range): BP systolic 85–141; BP diastolic 41–65; PULSE 63–73; RESP 16–44; O2SAT 92–95
[2016-07-25] MEDS: Albuterol-Ipratropium 3 mL Inhalation Solution NEB SCH ×4 (07:39→19:24)
[2016-07-25] MEDS: Isosorbide Mononitrate 30 mg ER24 Tablet PO SCH (08:30)
[2016-07-25] MEDS: cefTRIAXone Inj 2,000 MG in Dextrose 5% Minibag Plus 50 ML IV SCH (09:38)
[2016-07-25] MEDS: Heparin 5,000 Unit/mL Inj SUBQ SCH ×2 (09:38→16:53)
[2016-07-25] MEDS: Fluticasone-Salmererol 250-50 Inhaler INHALATION SCH ×2 (09:39→20:36)
[2016-07-25] MEDS: Pantoprazole 40 mg ER24 Tablet PO SCH ×2 (09:40→20:36)
[2016-07-25 10:15] LABS: Magnesium 1.6 mg/dL (1.6-2.6)
--- NOTE | 2016-07-25 11:01 | PCM.CONPAL ---
Date of Service Jul 25, 2016 Date of Hospital Admission: Jul 23, 2016 at 22:17 Date of Palliative Consult: Jul 25, 2016 Requesting Provider: Jeffrey Dominguez MD Reason Palliative Care Consult: Goals of Care Discussion Hospital Unit @time of consult: Progressive Care Palliative Care Recommendation 86-year-old gentleman with advanced COPD, ESRD on HD, recent hospitalization with erosive esophagitis and pneumonia, ASPVD, progressive dementia, etc. admitted now with acute on chronic respiratory failure secondary to probable pneumonia Palliative medicine consulted to assist in determination of goals of care Summary of palliative recommendations: -Symptom management (Pain/other)- appears comfortable at this time. Continued management per medicine service. Consider low dose IV morphine (2-4 mg) as needed for relief of dyspnea/air hunger. Also consider low-dose long-acting morphine or methadone for chronic use for relief of dyspnea/air hunger. -DPOA/Advanced Directives/POLST- DO NOT RESUSCITATE/DO NOT INTUBATE/limited interventions per ER note (apparently they were able to review his POLST though I cannot find a copy in his chart today. I have called to [facility] and they will fax over a copy of the current POLST). Review wishes further with family and patient in the coming days. -Family/emotional support- palliative will continue to follow Additional Medical Diagnoses with primary management by Hospitalist team include : # Acute on chronic hypoxic respiratory failure, POA. # possible community-acquired pneumonia versus aspiration., POA. # Chronic obstructive pulmonary disease and Chronic pulmonary hypertension, POA. No evidence of exacerbation. # Erosive esophagitis, chronic POA. # End stage renal disease, hemodialysis dependent. POA. # Elevated troponin of unknown significance, POA. # Chronic anemia, POA. # Thrombocytopenia chronic conditions # Hyperlipidemia with Peripheral Vascular Disease with bilateral Internal Carotid Artery disease # Stable angina, POA # Urinary retention secondary to prostatism. # Dementia possibly secondary to probable vascular dementia given h/o TIA Problems: End of Life Preferences DO NOT RESUSCITATE/DO NOT INTUBATE/limited interventions for now pending further review with patient and family Disposition Probable return to SNF Resuscitation Status Resuscitation Status: DNR/DNI:Do Not Resuscitate/Intubate POLST Updates/Changes Previous POLST?: Yes POLST Last Review Date: Jul 25, 2016 POLST Review Outcome: No Change . Advanced Care Planning Address: POLST Pain: None Symptom management: Drowsiness/sleepiness, Dyspnea Pt History History of Present Illness Per admission H&P: 86-year-old male with recent past medical history remarkable for erosive esophagitis and pneumonia in May 2016 presents with worsening cough for 2 days and subjective chills for 1 day from [facility]. The patient states that the cough is described as productive but he denies any chest pain or pain with inspiration. The patient cannot ascribe any changes to the sputum at this time. The patient states that he also began to notice chills beginning today. The patient is unaware of any recent fevers. The patient is on chronic home O2 therapy which is used sporadically throughout the day. The patient denies headache, sore throat, chest or abdominal pain, nausea vomiting or diarrhea. Palliative medicine consulted to assist patient and family in determination of goals of care. Prior to visiting, I reviewed his records in the EMR in detail, going back through his hospitalizations in 2013. Spoke with his bedside nurse. Attempted to call all listed family members and contacts without success. Nursing reports there have been no visitors or family at bedside thus far, and no additional contact information is on the white board. Social work notes from previous admissions indicated that primary contact was patient's daughter Genna House who resides in [place] ([phone]) On my arrival, the patient is lying in bed, deeply sleeping but arousable. He did not wish to talk. I talked with speech therapy who had just been in to see him- he had been uncooperative and unwilling to complete his swallow evaluation but apparently was able to take couple mouthfulls of pudding. Denies any significant distress at the moment. Unable/unwilling to provide additional history or information. Past Medical History Significant PMH Noted: Upper GI bleed with severe erosive esophagitis, Multiple esophageal ulcers in May 2016 Acute encephalopathy, likely metabolic with infection, GIB Mild troponemia secondary to ESRD Community acquired pneumonia May 2016 Hypertension uncontrolled ESRD on HD,M,W,F (AV fistula in LUE) History of TIA Peripheral Vascular Disease with bilateral Internal Carotid Artery disease Stable angina COPD with severe emphysematous changes on chest CT in 06/2013 Anemia of chronic disease secondary to renal failure Osteoporosis with pathological vertebral compression fractures. Urinary retention secondary to prostatism. Sepsis in 07/2013 Hyperlipidemia Dementia possibly secondary to probable vascular dementia given h/o TIA Resting tremor Left hip fracture in 05/2013 Seasonal allergies GERD Dementia Surgical History AV fistula in LUE Left hip fracture repair Social History Occupation: Retired; resides at [facility] Family Members Issues: Contacts: daughter Genna House (lives in [place]) and is primary contact/decision-maker per records and prior hospitalizations [phone] daughter Cassia Barrett [phone] friend Kaylan Oleary [phone] Living Situation: As above Palliative Performance Scale PPS Patient Status: Baseline PPS Ambulation: Mainly Sit/Lie PPS Activity: Unable to do most activity PPS Self-Care: Considerable assistance required PPS Intake: Normal or reduced PPS Conscious Level: Full or confusion Performance Scale: 40% POLST at Time of Admission Previous POLST?: Yes (by report in ER note; contacted [facility] by phone and requested a fax copy of POLST) POLST Last Review Date: Jul 25, 2016 Cardiopulmonary Resuscitation: DNR: Do Not Attempt Resuscitation Medical Interventions: Limited Additional Interventions POLST Status: No change from last encounter Allergy Allergies Reviewed: Yes Medications Current Medications: Current Medications Al Hydrox/Mg Hydrox/Simethicone 30 ml Q6 PRN PO; Start 07/23/16 at 23:35; Stop 07/23/16 at 23:52; Status DC Ondansetron HCl Dose range: 4 mg to 8 mg Q4H PRN IVPUSH; Start 07/23/16 at 23: 35 Acetaminophen 975 mg Q6H PRN PO; Start 07/23/16 at 23:35 Al Hydrox/Mg Hydrox/Simethicone 30 ml Q6H PRN PO; Start 07/23/16 at 23:45; Stop 07/23/16 at 23:52; Status DC Senna 17.2 mg BID PRN PO; Start 07/23/16 at 23:45 Polyethylene Glycol 17 gm DAILY PRN PO; Start 07/23/16 at 23:45 Aspirin 81 mg DAILY PO Last administered on 07/25/16 09:49; Admin Dose 81 MG; Start 07/24/16 at 08:30 Atorvastatin Calcium 20 mg HS PO Last administered on 07/24/16 21:28; Admin Dose 20 MG; Start 07/24/16 at 21:00 Salmeterol Xinafoate/ Fluticasone 1 puff BID INHALATION Last administered on 09:39; Admin Dose 1 PUFF; Start 07/24/16 at 08:30 Carvedilol 3.125 mg BID PO Last administered on 07/24/16 21:28; Admin Dose 3.125 MG; Start 07/24/16 at 08:30 Gabapentin 100 mg BID PO Last administered on 07/25/16 09:40; Admin Dose 100 MG ; Start 07/24/16 at 08:30 Isosorbide Mononitrate 30 mg DAILY PO Last administered on 07/24/16 17:00; Admin Dose 30 MG; Start 07/24/16 at 08:30 Pantoprazole 40 mg 40 mg BID PO Last administered on 07/25/16 09:40; Admin Dose 40 MG; Start 07/24/16 at 08:30 Ceftriaxone Sodium/Dextrose/ Water 50 ml @ 100 mls/hr Q24H IV Last administered on 07/25/16 09:38; Admin Dose 100 MLS/HR; Start 07/24/16 at 08:30 Azithromycin 500 mg DAILY PO Last administered on 07/25/16 09:41; Admin Dose 500 MG; Start 07/24/16 at 08:30 Albuterol/ Ipratropium 3 ml QIDWA NEB Last administered on 07/25/16 07:39; Admin Dose 3 ML; Start 07/24/16 at 06:00 Heparin Sodium (Porcine) 5,000 unit Q8 SUBQ Last administered on 07/25/16 09:38 ; Admin Dose 5,000 UNIT; Start 07/24/16 at 08:30 Clopidogrel Bisulfate 75 mg DAILY PO Last administered on 07/25/16 09:41; Admin Dose 75 MG; Start 07/24/16 at 08:30 Scheduled ([carb steady liquid]) 1 CANNISTER PO DAILY Amino AC/Protein Hydr/Whey Pro (Liquacel Liquid Protein Packet) 16 Gram-90 Kcal/ 30 Ml Liquid.pkt 30 ML PO DAILY Aspirin (Aspirin) 81 Mg Tablet 81 MG PO DAILY Atorvastatin Calcium (Atorvastatin Calcium) 20 Mg Tablet 20 MG PO HS Budesonide/Formoterol 160-4.5 mcg Inh (Symbicort 160-4.5 mcg Inh) 1 Puff Inha 1 PUFF IH BID rinse and spit following use. Carvedilol (Carvedilol) 3.125 Mg Tablet 3.125 MG PO BID Cetirizine (Cetirizine) 5 Mg Tablet 10 MG PO QAM Cyanocobalamin (Vitamin B12) 500 Mcg Tablet 1,000 MCG PO QAM Gabapentin (Gabapentin) 100 Mg Capsule 100 MG PO BID Isosorbide MN ER (Isosorbide MN ER) 30 Mg Tab.er.24h 30 MG PO QAM Lactobacillus Acidophilus (Probiotic) 1 Each Capsule 1 EACH PO QAM Lisinopril (Lisinopril) 20 Mg Tablet 20 MG PO QAM HOLD FOR SBP < 100 MM HG Mirtazapine (Mirtazapine) 7.5 Mg Tablet 7.5 MG PO HS Pantoprazole DR (Protonix) 40 Mg Tablet.dr 40 MG PO BID Vitamin B Complex/Vit C (Aurelia-Rustam Tablet) 1 Tab Tab 1 TAB PO QAM Zinc Gluconate (Zinc) 50 Mg Tablet 50 MG PO QAM Scheduled PRN Guaifenesin/Dextromethorphan (Nicole-Tussin Dm Syrup) 100 Mg-10 Mg/5 Ml Syrup 5 ML PO Q4H PRN PRN For Cough Hydralazine (Hydralazine) 10 Mg Tablet 10 MG PO QID PRN PRN For HYPERtension Ipratropium/Albuterol Sulfate (Iprat-Albut 0.5-3(2.5) mg/3 mL Inhalant Soln) 3 Ml Ampul.neb 3 ML IH Q4 PRN PRN For Shortness of Breath Loperamide (Loperamide) 2 Mg Tablet 4 MG PO Q6H PRN PRN For Diarrhea or Loose Stool Nitroglycerin SL (Nitroglycerin SL) 0.4 Mg Tab.subl 0.4 MG SL Q5MIN PRN PRN For Chest Pain Polyethylene Glycol 3350 (Miralax) 17 Gm Powd.pack 17 GM PO DAILY PRN PRN For Constipation Sennosides (Senna) 8.6 Mg Tablet 17.2 MG PO BID PRN PRN For Constipation Objective Findings Exam Vital Sign - Last Date Time Temp Pulse Resp B/P Pulse Ox O2 Delivery O2 Flow Rate FiO2 07/25/16 08:02 Supplement Oxygen 07/25/16 08:02 36.8 72 16 92 1.00 Intake and Output 07/24/16 07/24/16 07/25/16 Cumulative From/Thru 15:00 23:00 07:00 07/23/16 19:52 - 07/25/16 06:35 Intake Total 25 ml 525 ml Output Total 500 ml 190 ml 0 ml 690 ml Balance -500 ml -190 ml 25 ml -165 ml Intake Oral 25 ml 25 ml IV Total 500 ml Output Urine Total 190 ml 0 ml 190 ml Ultrafiltrate 500 ml 500 ml Objective Cachectic elderly male lying in bed. Appears to be in no distress. Vital signs noted. Skin is darkly complected, warm and dry. Head and neck exam remarkable for cachexia. Lungs with diminished breath sounds diffusely and a few dependent crackles, no wheezes. Heart sounds rapid and irregularly irregular. Abdomen soft and nontender; no peritoneal signs. Extremities with diffuse muscle atrophy and no edema. Neurologic exam limited by lack of cooperation. Lab/Diagnostics Lab and Imaging results reviewed in detail in EMR. Time spent Total time 75 minutes; >50% face to face with patient , providing counselling regarding plans and recommendations, and in care coordination with his medical teams. Of the above total time, 15 minutes counseling for advanced care planning with the patient and family, and in review of prior documentation, etc. copies to: Divya Siegel MD, Sal Snow MD Jul 25, 2016 11:01
--- NOTE | 2016-07-25 11:38 | PCM.PNNEPH ---
Shade Mak DO 07/25/16 1138: Subjective Date of Service Jul 25, 2016 Subjective Pt 86yom with MHx significant for dementia, dysphagia, severe COPD and ESRD on HD admitted for pneumonia. Nephrology consulted to further manage hemodialysis. Yesterday, patient was dialyzed with 500 mL fluids removed. Overnight, patient had 1 episode of sinus bradycardia in the low 30s. Asymptomatic sore over. Patient anuric. Blood pressure today 94/52, respiratory rate 16, heart rate 72 , temperature 36.8. BMP today unremarkable. Patient is without new complaints. He remains somewhat confused. This may be his baseline however. Exam Vital Signs Vital Sign - Last Date Time Temp Pulse Resp B/P Pulse Ox O2 Delivery O2 Flow Rate FiO2 07/25/16 11:29 71 07/25/16 08:02 Supplement Oxygen 07/25/16 08:02 36.8 16 92 1.00 Intake and Output 07/24/16 07/24/16 07/25/16 Cumulative From/Thru 15:00 23:00 07:00 07/23/16 19:52 - 07/25/16 06:35 Intake Total 25 ml 525 ml Output Total 500 ml 190 ml 0 ml 690 ml Balance -500 ml -190 ml 25 ml -165 ml Intake Oral 25 ml 25 ml IV Total 500 ml Output Urine Total 190 ml 0 ml 190 ml Ultrafiltrate 500 ml 500 ml Exam General: No acute distress HEENT: PERRLA, temporal wasting Neck: Supple, no JVD Cardiovascular: RRR Pulmonary: Diminished lung sounds throughout, coarse breathing. No use of accessory muscles.. Abdomen: Bowel tones present. Soft, nontender, nondistended. No hepatosplenomegaly or masses appreciated. Extremities: No clubbing, cyanosis, edema, or lymphadenopathy appreciated. Skin: Normal temperature, turgor, and texture; stage II coccygeal ulcer noted by wound care. Neurological: Cranial nerves grossly intact. Normal muscle strength, tone, and bulk. Reflexes, coordination, and sensory function within normal limits. No known gait impairment. Psychiatric: Alert and oriented to self and place. Lab and Diagnostics Result Diagram: 07/24/16 0330 07/25/16 0930 X-Rays, CTs and MRIs X-RAY CHEST ONE VIEW, PORTABLE IMPRESSION: 1. Bilateral pleural effusions, left greater than right, with compressive atelectasis or consolidation in the lung bases. 2. Increased pulmonary edema. Dictated by: Nate Zabala M.D. on 07/23/2016 at 21:32 Approved by: Nate Zabala M.D. on 07/23/2016 at 21:34 Cardiac Echo Impressions Echocardiogram Report from 06/02/2016 Interpretation Summary The ejection fraction is estimated to be 60-65%. The left atrium is severely dilated. The mitral valve leaflets appear mildly thickened, but open well. The aortic valve is slightly calcified. There is mild tricuspid regurgitation. The right ventricular systolic pressure is estimated at 50 mmHg assuming a right atrial pressure of 3 mm Hg. Compared to the prior echo exam, there has been an increase in the severity of pulmonary hypertension. Mildly increased echogenicity of the myocardium is noted, this can sometimes be seen in infiltrative disorders such as amyloidosis. Electronically signed by: Sacha Paul on Reading Physician:06/02/2016 04:43 PM Plan Impression Pt 86yom with MHx significant for dementia, dysphagia, severe COPD and ESRD on HD admitted for pneumonia. Problem list # Chronic kidney disease on hemodialysis # Normocytic anemia, multifactorial # Hypertension with hypertensive nephrosclerosis. # Chronic obstructive pulmonary disease # Pneumonia, likely aspirational. Plan: # Hemodialysis again on Sunday # Renally dose medications. Francisco Boland MD 07/25/16 1639: Exam Lab and Diagnostics Result Diagram: 07/24/16 0330 07/25/16 0930 Plan Impression Patient was seen and examined. Case discussed with a resident. Agreed with assessment and plan as above. Danny Matthews MD Pg [phone] Shade Mak DO Jul 25, 2016 11:38 Francisco Boland MD Jul 25, 2016 16:39
--- NOTE | 2016-07-25 17:32 | PCM.PNMED ---
Subjective Date of Service Jul 25, 2016 Subjective 86-year-old man with end-stage renal disease on hemodialysis, chronic esophagitis, COPD, chronic hypoxic respiratory failure and dementia presents with acute on chronic respiratory failure with hypoxia. Patient shows no understanding of why he is in the hospital. He denies dyspnea. He is unable to ambulate to bathroom due to generalized weakness. Hypotensive this morning, but alert and conversant. Exam Vital Signs Vital Sign - Last Date Time Temp Pulse Resp B/P Pulse Ox O2 Delivery O2 Flow Rate FiO2 07/25/16 17:00 37.5 70 18 101/44 95 OxyMask 3.00 Intake and Output 07/24/16 07/24/16 07/25/16 Cumulative From/Thru 15:00 23:00 07:00 07/23/16 19:52 - 07/25/16 06:35 Intake Total 25 ml 525 ml Output Total 500 ml 190 ml 0 ml 690 ml Balance -500 ml -190 ml 25 ml -165 ml Intake Oral 25 ml 25 ml IV Total 500 ml Output Urine Total 190 ml 0 ml 190 ml Ultrafiltrate 500 ml 500 ml Exam General: Cachectic elderly man in no acute distress HEENT: sclerae anicteric, oral mucosa moist Neck: no JVD Chest: Coarse breath sounds, but generally clear to auscultation Cardiac: S1S2, regular Abdomen: BS normal, non-tender Extremities: No edema, left upper extremity AV fistula intact Neuro: A&O, cranial nerves symmetric, motor strength 5/5, coordination normal IVs and Medications Medications Reviewed: Medications were reviewed in detail Lab and Diagnostics Result Diagram: 07/24/16 0330 07/25/16 0930 X-Rays, CTs and MRIs X-RAY CHEST ONE VIEW, PORTABLE IMPRESSION: 1. Bilateral pleural effusions, left greater than right, with compressive atelectasis or consolidation in the lung bases. 2. Increased pulmonary edema. Dictated by: Nate Zabala M.D. on 07/23/2016 at 21:32 Approved by: Nate Zabala M.D. on 07/23/2016 at 21:34 Cardiac Echo Impressions Echocardiogram Report from 06/02/2016 Interpretation Summary The ejection fraction is estimated to be 60-65%. The left atrium is severely dilated. The mitral valve leaflets appear mildly thickened, but open well. The aortic valve is slightly calcified. There is mild tricuspid regurgitation. The right ventricular systolic pressure is estimated at 50 mmHg assuming a right atrial pressure of 3 mm Hg. Compared to the prior echo exam, there has been an increase in the severity of pulmonary hypertension. Mildly increased echogenicity of the myocardium is noted, this can sometimes be seen in infiltrative disorders such as amyloidosis. Electronically signed by: Sacha Paul on Reading Physician:06/02/2016 04:43 PM Assessment & Plan 86-year-old male with recent past medical history remarkable for erosive esophagitis and pneumonia in May 2016 presents with worsening cough for 2 days and subjective chills for 1 day from [facility]. Acute, Active or High-risk Problems: # Acute on chronic hypoxic respiratory failure, POA. He is on chronic O2 therapy as outpatient. Echo from 06/02/2016 shows worsening pulmonary hypertension, likely due to long-standing COPD. EMS found the patient in [place] with a oxygen saturation of 84% on room air. - Nursing to maintain oxygen saturation between 88% and 94% given severe COPD - Avoid oxygen saturation greater than 94% given likely a CO2 retainer # possible community-acquired pneumonia versus aspiration., POA. Patient was diagnosed with pneumonia in June 01, 2016 and placed on Levaquin. Chest x-ray shows possible bilateral basilar pneumonia left greater than right. On admission negative for SIRS criteria with WBC count 7.9, temperature 37.6, heart rate of 76, respiratory rate 26. Patient started on Zosyn in the ED - Antibiotics to be converted to ceftriaxone 2 g every day and azithromycin 500 mg daily - Legionella urine antigen and strep urine antigen ordered - We will repeat CBC and pro-calcitonin daily # Chronic obstructive pulmonary disease and Chronic pulmonary hypertension, POA. No evidence of exacerbation. Patient reports subjective increased cough and productive sputum, physical exam fails to reveal wheezing - Continue patient's home Symbicort BID and DuoNeb's QIDWA # Erosive esophagitis, chronic POA. Noted on EGD in May 2016 consistent with either caustic or pill esophagitis on pathology - Continue pantoprazole 40 mg twice a day - Records indicate the patient will require follow up repeat EGD to confirm ulceration healing after August 31 # Goals of care. Patient is very cachectic with multiple chronic medical conditions and short life expectancy. Complicated by his dementia. - Palliative care consult - Patient has DO NOT RESUSCITATE/DO NOT INTUBATE polst form completed Resolving, stable and/or chronic conditions: # End stage renal disease, hemodialysis dependent. POA. On chronic hemodialysis Sunday schedule. Fistula in left upper extremity appears uninfected - Nephrology services consulted for routine hemodialysis while inpatient # Elevated troponin of unknown significance, POA. Chronic. - No further cardiac workup at this time # Chronic anemia, POA. Secondary to chronic kidney disease - Monitor # Thrombocytopenia - Platelets currently 100,000 - near baseline - Monitor # Hyperlipidemia with Peripheral Vascular Disease with bilateral Internal Carotid Artery disease - Continue home Atorvastatin 20 mg at bedtime # Stable angina, POA - Continue home isosorbide mononitrate 30 mg daily # Urinary retention secondary to prostatism. - Monitor I's and O's # Dementia possibly secondary to probable vascular dementia given h/o TIA - Continue Blood pressure control with carvedilol 3.125 mg twice a day and can increase to 6.25 mg twice a day once blood pressure stabilizes - Patient also has prescriptions for amlodipine and lisinopril which may be restarted with increased blood pressure - continue Aspirin therapy 81mg daily - Continue clopidogrel 75 mg daily GI prophylaxis: Protonix 40 mg twice a day DVT prophylaxis: Heparin 5000 units 3 times a day CODE STATUS: DNR/DNI The patient is admitted to inpatient status with likely inpatient stay greater than two midnights given presenting symptoms unlikely diagnosis, possible complications and required treatment. GI Prophylaxis: Proton Pump Inhibitor VTE Prophylaxis: Sub-Q Heparin (Unfractionated) VTE Mechanical Devices: Intermittant Pneumatic CD Resuscitation Status: DNR/DNI:Do Not Resuscitate/Intubate Time spent 35 minutes Jeffrey Dominguez MD Jul 25, 2016 17:32
[2016-07-26] VITALS (7 sets, daily range): BP systolic 97–160; BP diastolic 52–69; PULSE 63–79; RESP 18–32; O2SAT 89–95
[2016-07-26] MEDS: Heparin 5,000 Unit/mL Inj SUBQ SCH ×3 (01:38→17:07)
[2016-07-26] MEDS: Albuterol-Ipratropium 3 mL Inhalation Solution NEB SCH ×4 (07:44→20:05)
[2016-07-26] MEDS: Isosorbide Mononitrate 30 mg ER24 Tablet PO SCH ×2 (08:30→15:14)
[2016-07-26] MEDS: cefTRIAXone Inj 2,000 MG in Dextrose 5% Minibag Plus 50 ML IV SCH (08:30)
[2016-07-26] MEDS: Pantoprazole 40 mg ER24 Tablet PO SCH ×2 (08:40→21:35)
[2016-07-26] MEDS: Fluticasone-Salmererol 250-50 Inhaler INHALATION SCH ×2 (08:41→21:36)
--- NOTE | 2016-07-26 09:00 | PCM.PALLBR ---
Palliative Care Recommendation 86yo man with MHx significant for progressive dementia, erosive esophagitis with dysphagia, severe oxygen-dependent COPD and ESRD on HD admitted for pneumonia. Palliative medicine consulted to assist in determination of goals of care Summary of palliative recommendations: -Symptom management (Pain/other)- appears comfortable at this time. Continued management per medicine service. Pt has no opiates ordered for dyspnea/pain. Consider low dose 5mg liquid morphine q 3 hours as needed for relief of dyspnea/air hunger. Also consider low-dose long-acting morphine or methadone for chronic use for relief of dyspnea /air hunger. This recommendation follows appropriate use of opiates to supplement LAMA/LAMA/CSs in end stage oxygen dependent COPD per AAFP and AGS ( [place] [employer]) recommendations -DPOA/Advanced Directives/POLST- DO NOT RESUSCITATE/DO NOT INTUBATE with limited to interventions: determine antibiotics use of antibiotics with comfort as goal and no feeding tubes. Daughter Genna House ([phone]) is designated decision maker. She discussed her father's decline with Dr. Recinos on 07/25. She would like to see how he does over the next few days, and if he doesn't improve then she would consider transitioning him and discontinuing dialysis on his behalf. -Family/emotional support- palliative will continue to follow Other Family support contacts are: 1. daughter Cassia Barrett [phone] 2. friend Kaylan Oleary [phone] Additional Medical Diagnoses with primary management by Hospitalist team include : # Acute on chronic hypoxic respiratory failure, POA. # possible community-acquired pneumonia versus aspiration., POA. # Chronic obstructive pulmonary disease and Chronic pulmonary hypertension, POA. No evidence of exacerbation. # Erosive esophagitis, chronic POA. # End stage renal disease, hemodialysis dependent. POA. # Elevated troponin of unknown significance, POA. # Chronic anemia, POA. # Thrombocytopenia chronic conditions # Hyperlipidemia with Peripheral Vascular Disease with bilateral Internal Carotid Artery disease # Stable angina, POA # Urinary retention secondary to prostatism. # Dementia possibly secondary to probable vascular dementia given h/o TIA Problems: End of Life Preferences DO NOT RESUSCITATE/DO NOT INTUBATE/limited interventions for now pending further review with patient and family Disposition Probable return to SNF Resuscitation Status Resuscitation Status: DNR/DNI:Do Not Resuscitate/Intubate POLST Updates/Changes Previous POLST?: Yes (by report in ER note; contacted [facility] by phone and requested a fax copy of POLST) POLST Last Review Date: Jul 25, 2016 POLST Review Outcome: No Change Total time 35 minutes; >50% face to face with patient and/or family, providing counselling regarding plans and recommendations, and in care coordination with his/her medical teams. Palliative Brief Note Date of Service Jul 26, 2016 . Patient Identification: 86-year-old male with recent past medical history remarkable for erosive esophagitis and pneumonia in May 2016 presents with worsening cough for 2 days and subjective chills for 1 day from [facility]. The patient states that the cough is described as productive but he denies any chest pain or pain with inspiration. The patient cannot ascribe any changes to the sputum at this time. The patient states that he also began to notice chills beginning today. The patient is unaware of any recent fevers. The patient is on chronic home O2 therapy which is used sporadically throughout the day. The patient denies headache, sore throat, chest or abdominal pain, nausea vomiting or diarrhea. Palliative medicine consulted to assist patient and family in determination of goals of care. Prior to visiting, I reviewed his records in the EMR in detail, going back through his hospitalizations in 2013. Spoke with his bedside nurse. On my arrival, the patient is lying in bed, eyes closed. He just returned from dialysis. He is easily aroused. His speech is clear. He denies pain or shortness of breath. I offered to help him with eating his lunch, but he says he is not hungry yet. Unable/unwilling to provide additional history or information. Social History Retired; resides at [facility] Patsy Iqbal MD Jul 26, 2016 09:00 Retired; resides at [facility] Patsy Iqbal MD Jul 26, 2016 09:00 Patsy Iqbal MD Jul 26, 2016 09:00 Past Medical History Significant PMH Noted: Upper GI bleed with severe erosive esophagitis, Multiple esophageal ulcers in May 2016 Acute encephalopathy, likely metabolic with infection, GIB Mild troponemia secondary to ESRD Community acquired pneumonia May 2016 Hypertension uncontrolled ESRD on HD,M,W,F (AV fistula in LUE) History of TIA Peripheral Vascular Disease with bilateral Internal Carotid Artery disease Stable angina COPD with severe emphysematous changes on chest CT in 06/2013 Anemia of chronic disease secondary to renal failure Osteoporosis with pathological vertebral compression fractures. Urinary retention secondary to prostatism. Sepsis in 07/2013 Hyperlipidemia Dementia possibly secondary to probable vascular dementia given h/o TIA Resting tremor Left hip fracture in 05/2013 Seasonal allergies GERD Dementia Surgical History AV fistula in LUE Left hip fracture repair Social History Occupation: Retired; resides at [facility] Family Members Issues: Contacts: Patsy Iqbal MD Jul 26, 2016 09:00
--- NOTE | 2016-07-26 11:55 | PCM.PNNEPH ---
Shade Mak DO 07/26/16 1155: Subjective Date of Service Jul 26, 2016 Subjective Pt 86yom with MHx significant for dementia, dysphagia, severe COPD and ESRD on HD admitted for pneumonia. Nephrology consulted to further manage hemodialysis. No overnight events. Patient anuric. Blood pressure 118/53, heart rate 79, temperature 36.8. Minimal intake, 75cc fluids over 24hrs. Pt to be dialyzed today. Exam Vital Signs Vital Sign - Last Date Time Temp Pulse Resp B/P Pulse Ox O2 Delivery O2 Flow Rate FiO2 07/26/16 10:47 63 07/26/16 08:33 36.8 20 118/53 90 Nasal Cannula 1.50 Intake and Output 07/25/16 07/25/16 07/26/16 Cumulative From/Thru 15:00 23:00 07:00 07/23/16 19:52 - 07/26/16 06:38 Intake Total 50 ml 30 ml 605 ml Output Total 0 ml 690 ml Balance 50 ml 30 ml -85 ml Intake Oral 0 ml 30 ml 55 ml IV Total 50 ml 550 ml Output Urine Total 0 ml 190 ml Ultrafiltrate 500 ml # Bowel Movements 1 1 Exam General: No acute distress HEENT: PERRLA, temporal wasting Neck: Supple, no JVD Cardiovascular: RRR Pulmonary: coarse breathing. no crackles noted. Abdomen: Bowel tones present. Soft, nontender, nondistended. No hepatosplenomegaly or masses appreciated. Extremities: No clubbing, cyanosis, edema, or lymphadenopathy appreciated. Skin: Normal temperature, turgor, and texture; stage II coccygeal ulcer noted by wound care. Neurological: Cranial nerves grossly intact. Normal muscle strength, tone, and bulk. Reflexes, coordination, and sensory function within normal limits. No known gait impairment. Psychiatric: Alert and oriented to self and place, no change Lab and Diagnostics Result Diagram: 07/24/16 0330 07/25/16 0930 X-Rays, CTs and MRIs X-RAY CHEST ONE VIEW, PORTABLE IMPRESSION: 1. Bilateral pleural effusions, left greater than right, with compressive atelectasis or consolidation in the lung bases. 2. Increased pulmonary edema. Dictated by: Nate Zabala M.D. on 07/23/2016 at 21:32 Approved by: Nate Zabala M.D. on 07/23/2016 at 21:34 Cardiac Echo Impressions Echocardiogram Report from 06/02/2016 Interpretation Summary The ejection fraction is estimated to be 60-65%. The left atrium is severely dilated. The mitral valve leaflets appear mildly thickened, but open well. The aortic valve is slightly calcified. There is mild tricuspid regurgitation. The right ventricular systolic pressure is estimated at 50 mmHg assuming a right atrial pressure of 3 mm Hg. Compared to the prior echo exam, there has been an increase in the severity of pulmonary hypertension. Mildly increased echogenicity of the myocardium is noted, this can sometimes be seen in infiltrative disorders such as amyloidosis. Electronically signed by: Sacha Paul on Reading Physician:06/02/2016 04:43 PM Plan Impression Pt 86yom with MHx significant for dementia, dysphagia, severe COPD and ESRD on HD admitted for pneumonia. Problem list # Chronic kidney disease on hemodialysis # Normocytic anemia, multifactorial # Hypertension with hypertensive nephrosclerosis. # Chronic obstructive pulmonary disease # Pneumonia,likely aspirational. Plan: # Hemodialysis today without fluid removal # Pre-dialysis BMP with phosphate and calcium level (06/27) should he remains admitted Francisco Boland MD 07/27/16 1305: Exam Lab and Diagnostics Result Diagram: 07/24/16 0330 07/25/16 0930 Plan Impression Pt was seen during HD. 3.5 hr, 3K, 35HCO3 DFR 600, BFR 400 Revaclear, left AVF. UF 1L Plan: Next HD on Sunday. Danny Matthews MD Pg [phone] Shade Mak DO Jul 26, 2016 11:55 Francisco Boland MD Jul 27, 2016 13:05
--- NOTE | 2016-07-26 17:16 | PCM.PNMED ---
Subjective Date of Service Jul 26, 2016 Subjective 86-year-old man with end-stage renal disease on hemodialysis, chronic esophagitis, COPD, chronic hypoxic respiratory failure and dementia presents with acute on chronic respiratory failure with hypoxia. His history is vague. Seems to be breathing comfortably. He is unable to ambulate to bathroom due to generalized weakness. Exam Vital Signs Vital Sign - Last Date Time Temp Pulse Resp B/P Pulse Ox O2 Delivery O2 Flow Rate FiO2 07/26/16 15:59 66 20 92 Nasal Cannula 2.00 07/26/16 13:47 36.5 160/69 Intake and Output 07/25/16 07/25/16 07/26/16 Cumulative From/Thru 15:00 23:00 07:00 07/23/16 19:52 - 07/26/16 06:38 Intake Total 50 ml 30 ml 605 ml Output Total 0 ml 690 ml Balance 50 ml 30 ml -85 ml Intake Oral 0 ml 30 ml 55 ml IV Total 50 ml 550 ml Output Urine Total 0 ml 190 ml Ultrafiltrate 500 ml # Bowel Movements 1 1 Exam General: Cachectic appearing elderly man in no acute distress HEENT: sclerae anicteric, oral mucosa moist Neck: no JVD Chest: Coarse breath sounds bilaterally Cardiac: S1S2, regular Abdomen: BS normal, non-tender Extremities: No edema, left upper extremity AV fistula intact Neuro: A alert but not oriented, cranial nerves symmetric, motor strength 5-/5, coordination normal IVs and Medications Medications Reviewed: Medications were reviewed in detail Lab and Diagnostics Result Diagram: 07/24/16 0330 07/25/16 0930 X-Rays, CTs and MRIs X-RAY CHEST ONE VIEW, PORTABLE IMPRESSION: 1. Bilateral pleural effusions, left greater than right, with compressive atelectasis or consolidation in the lung bases. 2. Increased pulmonary edema. Dictated by: Nate Zabala M.D. on 07/23/2016 at 21:32 Approved by: Nate Zabala M.D. on 07/23/2016 at 21:34 Cardiac Echo Impressions Echocardiogram Report from 06/02/2016 Interpretation Summary The ejection fraction is estimated to be 60-65%. The left atrium is severely dilated. The mitral valve leaflets appear mildly thickened, but open well. The aortic valve is slightly calcified. There is mild tricuspid regurgitation. The right ventricular systolic pressure is estimated at 50 mmHg assuming a right atrial pressure of 3 mm Hg. Compared to the prior echo exam, there has been an increase in the severity of pulmonary hypertension. Mildly increased echogenicity of the myocardium is noted, this can sometimes be seen in infiltrative disorders such as amyloidosis. Electronically signed by: Sacha Paul on Reading Physician:06/02/2016 04:43 PM Assessment & Plan 86-year-old male with recent past medical history remarkable for erosive esophagitis and pneumonia in May 2016 presents with worsening cough for 2 days and subjective chills for 1 day from [facility]. Acute, Active or High-risk Problems: # Acute on chronic hypoxic respiratory failure, POA. He is on chronic O2 therapy as outpatient. Echo from 06/02/2016 shows worsening pulmonary hypertension, likely due to long-standing COPD. EMS found the patient in [place] with a oxygen saturation of 84% on room air. - Nursing to maintain oxygen saturation between 88% and 94% given severe COPD - Avoid oxygen saturation greater than 94% given likely a CO2 retainer # Community-acquired pneumonia versus aspiration., POA. Patient was diagnosed with pneumonia in June 01, 2016 and placed on Levaquin. Chest x-ray shows possible bilateral basilar pneumonia left greater than right. On admission negative for SIRS criteria with WBC count 7.9, temperature 37.6, heart rate of 76, respiratory rate 26. Procalcitonin was initially mildly abnormal but now markedly elevated. Otherwise afebrile with normal white count. No sputum. Patient started on Zosyn in the ED. Sputum culture shows MSSA. Antibiotics initiated 07/23/16. - Continue with ceftriaxone 2 g every day and azithromycin 500 mg daily, plan to continue 5 days - Repeat chest x-ray # Chronic obstructive pulmonary disease and Chronic pulmonary hypertension, POA. No evidence of exacerbation. Patient reports subjective increased cough and productive sputum, physical exam fails to reveal wheezing - Continue patient's home Symbicort BID and DuoNeb's QIDWA # Erosive esophagitis, chronic POA. Noted on EGD in May 2016 consistent with either caustic or pill esophagitis on pathology - Continue pantoprazole 40 mg twice a day - Records indicate the patient will require follow up repeat EGD to confirm ulceration healing after August 31 # Goals of care. Patient is very cachectic with multiple chronic medical conditions and short life expectancy. Complicated by his dementia. - Palliative care consult - Patient has DO NOT RESUSCITATE/DO NOT INTUBATE polst form completed Resolving, stable and/or chronic conditions: # End stage renal disease, hemodialysis dependent. POA. On chronic hemodialysis Sunday schedule. Fistula in left upper extremity appears uninfected - Nephrology services consulted for routine hemodialysis while inpatient # Elevated troponin of unknown significance, POA. Chronic. - No further cardiac workup at this time # Chronic anemia, POA. Secondary to chronic kidney disease - Monitor # Thrombocytopenia - Platelets currently 100,000 - near baseline - Monitor # Hyperlipidemia with Peripheral Vascular Disease with bilateral Internal Carotid Artery disease - Continue home Atorvastatin 20 mg at bedtime # Stable angina, POA - Continue home isosorbide mononitrate 30 mg daily # Urinary retention secondary to prostatism. - Monitor I's and O's # Dementia possibly secondary to probable vascular dementia given h/o TIA - Continue Blood pressure control with carvedilol 3.125 mg twice a day and can increase to 6.25 mg twice a day once blood pressure stabilizes - Patient also has prescriptions for amlodipine and lisinopril which may be restarted with increased blood pressure - continue Aspirin therapy 81mg daily - Continue clopidogrel 75 mg daily GI prophylaxis: Protonix 40 mg twice a day DVT prophylaxis: Heparin 5000 units 3 times a day CODE STATUS: DNR/DNI The patient is admitted to inpatient status with likely inpatient stay greater than two midnights given presenting symptoms unlikely diagnosis, possible complications and required treatment. GI Prophylaxis: Proton Pump Inhibitor VTE Prophylaxis: Sub-Q Heparin (Unfractionated) VTE Mechanical Devices: Intermittant Pneumatic CD Resuscitation Status: DNR/DNI:Do Not Resuscitate/Intubate Time spent 35 minutes Jeffrey Dominguez MD Jul 26, 2016 16:46
[2016-07-27] VITALS (9 sets, daily range): BP systolic 126–166; BP diastolic 58–71; PULSE 59–75; RESP 16–26; O2SAT 92–96
[2016-07-27] MEDS: Heparin 5,000 Unit/mL Inj SUBQ SCH ×3 (01:30→16:19)
[2016-07-27] MEDS: Albuterol-Ipratropium 3 mL Inhalation Solution NEB SCH ×4 (07:21→20:45)
[2016-07-27] MEDS: Fluticasone-Salmererol 250-50 Inhaler INHALATION SCH ×2 (08:27→21:08)
[2016-07-27] MEDS: cefTRIAXone Inj 2,000 MG in Dextrose 5% Minibag Plus 50 ML IV SCH (08:29)
[2016-07-27] MEDS: Pantoprazole 40 mg ER24 Tablet PO SCH ×2 (08:33→21:04)
[2016-07-27] MEDS: Isosorbide Mononitrate 30 mg ER24 Tablet PO SCH (08:33)
--- NOTE | 2016-07-27 14:12 | PCM.PNMED ---
Subjective Date of Service Jul 27, 2016 Subjective 86-year-old man with end-stage renal disease on hemodialysis, chronic esophagitis, COPD, chronic hypoxic respiratory failure and dementia presents with acute on chronic respiratory failure with hypoxia due to bibasilar pneumonia. He has no complaints today. Appears calm and comfortable in no respiratory distress. Exam Vital Signs Vital Sign - Last Date Time Temp Pulse Resp B/P Pulse Ox O2 Delivery O2 Flow Rate FiO2 07/27/16 11:29 60 20 94 Room Air 07/27/16 08:15 134/59 1.00 07/27/16 01:34 36.4 Intake and Output 07/26/16 07/26/16 07/27/16 Cumulative From/Thru 15:00 23:00 07:00 07/23/16 19:52 - 07/27/16 05:37 Intake Total 0 ml 0 ml 605 ml Output Total 1000 ml 200 ml 0 ml 1890 ml Balance -1000 ml -200 ml 0 ml -1285 ml Intake Oral 0 ml 0 ml 55 ml IV Total 550 ml Output Urine Total 200 ml 0 ml 390 ml Ultrafiltrate 1000 ml 1500 ml # Bowel Movements 1 1 3 Exam General: Cachectic appearing elderly man in no acute distress HEENT: sclerae anicteric, oral mucosa moist Neck: no JVD; kyphotic Chest: Coarse breath sounds and inspiratory crackles bilaterally Cardiac: S1S2, regular Abdomen: BS normal, non-tender Extremities: No edema, left upper extremity AV fistula intact Neuro: A alert but not oriented, cranial nerves symmetric, motor strength proximally 4/5 IVs and Medications Medications Reviewed: Medications were reviewed in detail Lab and Diagnostics Result Diagram: 07/24/16 0330 07/25/16 0930 X-Rays, CTs and MRIs Chest x-ray 07/26/16 (personally reviewed) slight increase in bilateral infiltrate X-RAY CHEST ONE VIEW, PORTABLE IMPRESSION: 1. Bilateral pleural effusions, left greater than right, with compressive atelectasis or consolidation in the lung bases. 2. Increased pulmonary edema. Dictated by: Nate Zabala M.D. on 07/23/2016 at 21:32 Approved by: Nate Zabala M.D. on 07/23/2016 at 21:34 Cardiac Echo Impressions Echocardiogram Report from 06/02/2016 Interpretation Summary The ejection fraction is estimated to be 60-65%. The left atrium is severely dilated. The mitral valve leaflets appear mildly thickened, but open well. The aortic valve is slightly calcified. There is mild tricuspid regurgitation. The right ventricular systolic pressure is estimated at 50 mmHg assuming a right atrial pressure of 3 mm Hg. Compared to the prior echo exam, there has been an increase in the severity of pulmonary hypertension. Mildly increased echogenicity of the myocardium is noted, this can sometimes be seen in infiltrative disorders such as amyloidosis. Electronically signed by: Sacha Paul on Reading Physician:06/02/2016 04:43 PM Assessment & Plan 86-year-old male with recent past medical history remarkable for erosive esophagitis and pneumonia in May 2016 presents with worsening cough for 2 days and subjective chills for 1 day from [facility]. Acute, Active or High-risk Problems: # Acute on chronic hypoxic respiratory failure, POA. He is on chronic O2 therapy as outpatient. Echo from 06/02/2016 shows worsening pulmonary hypertension, likely due to long-standing COPD. EMS found the patient in [place] with a oxygen saturation of 84% on room air. - Nursing to maintain oxygen saturation between 88% and 94% given severe COPD - Avoid oxygen saturation greater than 94% given likely a CO2 retainer # Community-acquired pneumonia versus aspiration., POA. Chest x-ray shows possible bilateral basilar pneumonia left greater than right. On admission negative for SIRS criteria with WBC count 7.9, temperature 37.6, heart rate of 76, respiratory rate 26. Procalcitonin was initially mildly abnormal but now markedly elevated. Otherwise afebrile with normal white count. No sputum. Patient started on Zosyn in the ED in evening of 07/23. Sputum culture shows MSSA. Day 1 of Antibiotics initiated 07/24/16. - Continue with ceftriaxone 2 g every day and azithromycin 500 mg daily, plan to complete 5 day course with final dose in a.m. on 07/28 # Chronic obstructive pulmonary disease and Chronic pulmonary hypertension, POA. No evidence of exacerbation. Patient reports subjective increased cough and productive sputum, physical exam fails to reveal wheezing - Continue patient's home Symbicort BID and DuoNeb's QIDWA # Erosive esophagitis, chronic POA. Noted on EGD in May 2016 consistent with either caustic or pill esophagitis on pathology - Continue pantoprazole 40 mg twice a day - Records indicate the patient will require follow up repeat EGD to confirm ulceration healing after August 31 # Goals of care. Patient is very cachectic with multiple chronic medical conditions and short life expectancy. Complicated by his dementia. He is however alert enough to request continuation of dialysis which precludes hospice care. - Palliative care consult - Patient has DO NOT RESUSCITATE/DO NOT INTUBATE polst form completed # Malnutrition, severe. Patient has diminished body mass and weakness. - Nutritional consult Resolving, stable and/or chronic conditions: # End stage renal disease, hemodialysis dependent. POA. On chronic hemodialysis Sunday schedule. Fistula in left upper extremity appears uninfected - Nephrology services consulted for routine hemodialysis while inpatient # Elevated troponin of unknown significance, POA. Chronic. - No further cardiac workup at this time # Chronic anemia, POA. Secondary to chronic kidney disease - Monitor # Thrombocytopenia - Platelets currently 100,000 - near baseline # Hyperlipidemia with Peripheral Vascular Disease with bilateral Internal Carotid Artery disease - Continue home Atorvastatin 20 mg at bedtime # Stable angina, POA - Continue cardiac medication # Urinary retention secondary to prostatism. - Monitor I's and O's # Dementia possibly secondary to probable vascular dementia given h/o TIA - Stable GI prophylaxis: Protonix 40 mg twice a day DVT prophylaxis: Heparin 5000 units 3 times a day CODE STATUS: DNR/DNI Disposition: Anticipate discharge to SNF tomorrow after completion of antibiotics course. GI Prophylaxis: Proton Pump Inhibitor VTE Prophylaxis: Sub-Q Heparin (Unfractionated) VTE Mechanical Devices: Intermittant Pneumatic CD Resuscitation Status: DNR/DNI:Do Not Resuscitate/Intubate Time spent 30 minutes Jeffrey Dominguez MD Jul 27, 2016 14:12 VTE Prophylaxis: Sub-Q Heparin (Unfractionated) VTE Mechanical Devices: Intermittant Pneumatic CD Resuscitation Status: DNR/DNI:Do Not Resuscitate/Intubate Jeffrey Dominguez MD Jul 27, 2016 14:12
--- NOTE | 2016-07-27 14:29 | PCM.PALLBR ---
Palliative Brief Note Date of Service Jul 27, 2016 . Continues to slowly improve. Near baseline. Case discussed with his hospitalist, Dr. Dominguez. Palliative STORE CLERK spoke with daughter this a.m., reviewing status. Patient remains DO NOT RESUSCITATE/DO NOT INTUBATE, but does NOT want to discontinue dialysis yet, and therefore is not a candidate for hospice. Anticipate discharge back to his long-term care facility tomorrow. Palliative medicine will sign off at this time (no formal charges today) Sal Recinos MD Jul 27, 2016 14:29
--- NOTE | 2016-07-27 14:31 | PCM.PNNEPH ---
Shade Mak DO 07/27/16 1431: Subjective Date of Service Jul 27, 2016 Subjective Pt 86yom with MHx significant for dementia, dysphagia, severe COPD and ESRD on HD admitted for pneumonia. Nephrology consulted to further manage hemodialysis. No overnight events. Patient dialyzes 1L fluid off yesterday. Pt very conversant today, denies any new complaints. No fevers, chills, nausea, vomiting, diarrhea. No pain Nor does patient complains of shortness of breath or chest pain. Exam Vital Signs Vital Sign - Last Date Time Temp Pulse Resp B/P Pulse Ox O2 Delivery O2 Flow Rate FiO2 07/27/16 11:29 60 20 94 Room Air 07/27/16 08:15 134/59 1.00 07/27/16 01:34 36.4 Intake and Output 07/26/16 07/26/16 07/27/16 Cumulative From/Thru 15:00 23:00 07:00 07/23/16 19:52 - 07/27/16 05:37 Intake Total 0 ml 0 ml 605 ml Output Total 1000 ml 200 ml 0 ml 1890 ml Balance -1000 ml -200 ml 0 ml -1285 ml Intake Oral 0 ml 0 ml 55 ml IV Total 550 ml Output Urine Total 200 ml 0 ml 390 ml Ultrafiltrate 1000 ml 1500 ml # Bowel Movements 1 1 3 Exam General: No acute distress HEENT: PERRLA, temporal wasting Neck: Supple, no JVD Cardiovascular: RRR Pulmonary: mild coarse breathing. no crackles noted. Abdomen: Bowel tones present. Soft, nontender, nondistended. No hepatosplenomegaly or masses appreciated. Extremities: No clubbing, cyanosis, edema, or lymphadenopathy appreciated. Skin: Normal temperature, turgor, and texture; stage II coccygeal ulcer noted by wound care. Neurological: Cranial nerves grossly intact. Normal muscle strength, tone, and bulk. Reflexes, coordination, and sensory function within normal limits. No known gait impairment. Psychiatric: More Alert, oriented to place and self. Lab and Diagnostics Result Diagram: 07/24/16 0330 07/25/16 0930 X-Rays, CTs and MRIs Chest x-ray 07/26/16 (personally reviewed) slight increase in bilateral infiltrate X-RAY CHEST ONE VIEW, PORTABLE IMPRESSION: 1. Bilateral pleural effusions, left greater than right, with compressive atelectasis or consolidation in the lung bases. 2. Increased pulmonary edema. Dictated by: Nate Zabala M.D. on 07/23/2016 at 21:32 Approved by: Nate Zabala M.D. on 07/23/2016 at 21:34 Cardiac Echo Impressions Echocardiogram Report from 06/02/2016 Interpretation Summary The ejection fraction is estimated to be 60-65%. The left atrium is severely dilated. The mitral valve leaflets appear mildly thickened, but open well. The aortic valve is slightly calcified. There is mild tricuspid regurgitation. The right ventricular systolic pressure is estimated at 50 mmHg assuming a right atrial pressure of 3 mm Hg. Compared to the prior echo exam, there has been an increase in the severity of pulmonary hypertension. Mildly increased echogenicity of the myocardium is noted, this can sometimes be seen in infiltrative disorders such as amyloidosis. Electronically signed by: Sacha Paul on Reading Physician:06/02/2016 04:43 PM Plan Impression Pt 86yom with MHx significant for dementia, dysphagia, severe COPD and ESRD on HD admitted for pneumonia. Problem list # Chronic kidney disease on hemodialysis # Normocytic anemia, multifactorial # Hypertension with hypertensive nephrosclerosis. # Chronic obstructive pulmonary disease # Pneumonia,likely aspirational. Plan: # Hemodialysis planned for Sunday # Pre-dialysis BMP with phosphate and calcium level (06/27). Francisco Boland MD 07/27/16 1654: Exam Lab and Diagnostics Result Diagram: 07/24/16 0330 07/25/16 0930 Shade Mak DO Jul 27, 2016 14:31 Francisco Boland MD Jul 27, 2016 16:54
--- NOTE | 2016-07-27 16:53 | DRSVH ---
PROCEDURE: X-RAY CHEST ONE VIEW ([id number]) INDICATIONS: assess interval change TECHNIQUE: One view of the chest was acquired. COMPARISON: [facility], CR, XR CHEST 1VW (PORTABLE), 07/23/2016, 20:13. FINDINGS: Surgical changes and devices: None. Lungs and pleura: The patient's medial lung apices are partially obscured by neck soft tissues. The re are bilateral pleural effusions, small to moderate on the left on the right, with associated bibas ilar compressive atelectasis or consolidation. There is increased pulmonary vascular prominence comp atible with pulmonary edema. Mediastinum: Mediastinal contours appear unchanged. Heart size is enlarged. Bones and chest wall: No suspicious bony lesions. Overlying soft tissues appear unremarkable. IMPRESSION: 1. Bilateral pleural effusions redemonstrated, with compressive atelectasis or lung consolidation inv olving the lung bases. 2. Persistent widespread pulmonary edema. Dictated by: Mau ÁLVAREZ Interpreted: Haven Lim MD on 07/27/2016 at 8:33 Approved by: Haven Lim M.D. on 07/27/2016 at 16:51
[2016-07-28] MEDS: Heparin 5,000 Unit/mL Inj SUBQ SCH ×2 (00:18→08:30)
[2016-07-28 03:00] VITALS: BP 172/78; PULSE 62; RESP 18; O2SAT 96
[2016-07-28] MEDS: Albuterol-Ipratropium 3 mL Inhalation Solution NEB SCH ×2 (06:00→11:00)
[2016-07-28 06:05] LABS: Phosphorus 3.6 mg/dL (2.5-4.9)
[2016-07-28 07:48] VITALS: PULSE 63; RESP 20; O2SAT 90
[2016-07-28] MEDS: Fluticasone-Salmererol 250-50 Inhaler INHALATION SCH (08:02)
[2016-07-28] MEDS: Pantoprazole 40 mg ER24 Tablet PO SCH (08:02)
[2016-07-28 09:15] VITALS: BP 181/76; PULSE 64
--- NOTE | 2016-07-28 10:08 | PCM.DIMED ---
Discharge Instructions Date of Service Jul 28, 2016 Dates of Hospitalization Jul 23, 2016 at 22:17 Discharge Diagnosis Discharge Diagnosis Acute respiratory failure with hypoxia Pneumonia, bilateral, healthcare facility associated End-stage renal disease on hemodialysis Protein calorie malnutrition, severe Esophagitis, chronic Medication Instructions Additional med instructions No medication changes. Antibiotics were completed prior to discharge. Diet Discharge Diet: Renal Diet Activity Discharge Activity: Other (as per physical therapy staff at [facility]) Patient Instructions Follow-up plan Continue Sunday dialysis at [facility] Follow-up Provider: Divya Siegel MD Follow-up with PCP in: Other (as needed at [facility]) Jeffrey Dominguez MD Jul 28, 2016 10:08
--- NOTE | 2016-07-28 12:31 | PCM.DC.MED ---
Discharge Summary Date of Service Jul 28, 2016 Dates of Hospitalization Date of Hospital Admission Jul 23, 2016 at 22:17 Date of Discharge: Jul 28, 2016 Providers: Admitting Physician: Mari Estrada DO Primary Care Physician: Divya Siegel MD Attending Physician: Mari Estrada DO Diagnosis at Time of Discharge Diagnosis at Time of Discharge Acute respiratory failure with hypoxia Pneumonia, bilateral, healthcare facility associated End-stage renal disease on hemodialysis Protein calorie malnutrition, severe Esophagitis, chronic Consultations Nephrology, Dr. Rankin Procedures XRay, CTs & MRIs PROCEDURE: X-RAY CHEST ONE VIEW, PORTABLE ([id number]) IMPRESSION: 1. Bilateral pleural effusions, left greater than right, with compressive atelectasis or consolidation in the lung bases. 2. Increased pulmonary edema. Dictated by: Nate Zabala M.D. on 07/23/2016 at 21:32 PROCEDURE: X-RAY CHEST ONE VIEW ([id number]) IMPRESSION: 1. Bilateral pleural effusions redemonstrated, with compressive atelectasis or lung consolidation involving the lung bases. 2. Persistent widespread pulmonary edema. Dictated by: Mau Rico RR Interpreted: Haven Lim MD on 07/27/2016 at 8: 33 . Cardiac Echo Impression Echocardiogram Report from 06/02/2016 Interpretation Summary The ejection fraction is estimated to be 60-65%. The left atrium is severely dilated. The mitral valve leaflets appear mildly thickened, but open well. The aortic valve is slightly calcified. There is mild tricuspid regurgitation. The right ventricular systolic pressure is estimated at 50 mmHg assuming a right atrial pressure of 3 mm Hg. Compared to the prior echo exam, there has been an increase in the severity of pulmonary hypertension. Mildly increased echogenicity of the myocardium is noted, this can sometimes be seen in infiltrative disorders such as amyloidosis. Electronically signed by: Sacha Paul on Reading Physician:06/02/2016 04:43 PM Brief History History of Present Illness (per admission note): 86-year-old male with recent past medical history remarkable for erosive esophagitis and pneumonia in May 2016 presents with worsening cough for 2 days and subjective chills for 1 day from [facility]. The patient states that the cough is described as productive but he denies any chest pain or pain with inspiration. The patient cannot ascribe any changes to the sputum at this time. The patient states that he also began to notice chills beginning today. The patient is unaware of any recent fevers. The patient is on chronic home O2 therapy which is used sporadically throughout the day. The patient denies headache, sore throat, chest or abdominal pain, nausea vomiting or diarrhea. . Hospital Course # Acute on chronic hypoxic respiratory failure, POA. He is on chronic O2 therapy as outpatient. Echo from 06/02/2016 shows worsening pulmonary hypertension, likely due to long-standing COPD. EMS found the patient in [employer] with a oxygen saturation of 84% on room air. Etiology is acute bibasilar pneumonia versus CHF versus COPD. - Nursing goal to maintain oxygen saturation between 88% and 94% given severe COPD -Oxygen saturation 90% on room air at time of discharge # Community-acquired pneumonia versus aspiration., POA. Chest x-ray shows possible bilateral basilar pneumonia left greater than right. On admission negative for SIRS criteria with WBC count 7.9, temperature 37.6, heart rate of 76, respiratory rate 26. Procalcitonin was initially mildly abnormal but now markedly elevated. Otherwise afebrile with normal white count. No sputum. Patient started on Zosyn in the ED in evening of 07/23. Sputum culture shows MSSA. Day 1 of Antibiotics initiated 07/24/16. - Continue with ceftriaxone 2 g every day and azithromycin 500 mg daily, complete 5 day course with final dose in a.m. on 07/28 # Acute metabolic encephalopathy, present on admission. Patient was confused than baseline for the first 48 hours of hospitalization. Likely metabolic encephalopathy due to hypoxia, superimposed on underlying dementia. - Resolved to baseline at time of discharge # Chronic obstructive pulmonary disease and Chronic pulmonary hypertension, POA. No evidence of exacerbation. Patient reports subjective increased cough and productive sputum, physical exam fails to reveal wheezing - Continueb patient's home Symbicort BID and DuoNeb's QIDWA # Erosive esophagitis, chronic POA. Noted on EGD in May 2016 consistent with either caustic or pill esophagitis on pathology. Minimally symptomatic at this time - Continue pantoprazole at previous outpatient dosage; received pantoprazole 40 mg twice a day while inpatient - Records indicate the patient will require follow up repeat EGD to confirm ulceration healing after August 31 # Goals of care. Patient is very cachectic with multiple chronic medical conditions and short life expectancy. Complicated by his dementia. He is however alert enough to request continuation of dialysis which precludes hospice care. - Palliative care consult - Patient has DO NOT RESUSCITATE/DO NOT INTUBATE polst form completed # Malnutrition, severe. Patient has diminished body mass and weakness. - Nutritional consult obtained; recommend Nephro supplements twice a day Resolving, stable and/or chronic conditions: # End stage renal disease, hemodialysis dependent. POA. On chronic hemodialysis Sunday schedule. Fistula in left upper extremity appears uninfected - Nephrology services consulted for routine hemodialysis while inpatient - Dialysis Sunday at [facility] # Elevated troponin of unknown significance, POA. Chronic. - No further cardiac workup at this time # Chronic anemia, POA. Secondary to chronic kidney disease - Monitor # Thrombocytopenia - Platelets currently 116,000, - near baseline # Hyperlipidemia with Peripheral Vascular Disease with bilateral Internal Carotid Artery disease - Continue home Atorvastatin 20 mg at bedtime # Stable angina, POA - Continue cardiac medication # Urinary retention secondary to prostatism. - Monitor I's and O's # Dementia possibly secondary to probable vascular dementia given h/o TIA - Stable # DVT prophylaxis: Heparin 5000 units 3 times a day CODE STATUS: DNR/DNI Exam Vital Signs (Last) Date Time Temp Pulse Resp B/P Pulse Ox O2 Delivery O2 Flow Rate FiO2 07/28/16 07:48 36.4 63 20 90 Room Air 07/28/16 03:00 2.00 Exam General: Cachectic appearing elderly man, alert and appropriate HEENT: sclerae anicteric, oral mucosa moist Neck: no JVD; kyphotic Chest: Coarse breath sounds and inspiratory crackles bilaterally Cardiac: S1S2, regular Abdomen: BS normal, non-tender Extremities: No edema, left upper extremity AV fistula intact Neuro: A alert but not fully oriented, cranial nerves symmetric, motor strength proximally 4/5 Test 07/23/16 19:45 07/24/16 03:30 07/24/16 14:50 07/25/16 09:30 Reticulocyte Count,Calculated 0.4% (0.6-2.6) Hemoglobin A1c 5.1% (4.8-5.6) Iron Level 56ug/dL (35-150) Total Iron Binding Capacity 117ug/dL (250-450) Percent Iron Saturation 48%sat (15-50) Unsaturated Iron Binding 60.5ug/dL Ferritin 1084ng/mL (30-400) Total Bilirubin 0.4mg/dL (0.0-1.2) Aspartate Amino Transf (AST/SGOT) 34U/L (0-50) Alanine Aminotransferase (ALT/SGPT) 20U/L (0-44) Alkaline Phosphatase 189U/L (25-160) Troponin T 0.133ug/L (0.0-0.011) Pro-B-Type Natriuretic Peptide 84923aj/mL (0-486) Total Protein 6.0g/dL (6.4-8.4) Hold Beck Top Tube Received (Received) White Blood Count 7.4th/mm3 (3.8-10.1) Red Blood Count 3.63mil/mm3 (4.40-5.80) Hemoglobin 11.4g/dL (13.8-17.2) Hematocrit 34.6% (41.0-50.0) Mean Corpuscular Volume 95.3fL (81-100) Mean Corpuscular Hemoglobin 31.4pg (27.0-35.0) Mean Corpuscular Hemoglobin Concent 32.9% (32.0-37.0) Red Cell Distribution Width 13.9% (12.3-15.4) Platelet Count 116bil/L (150-400) Neutrophils (%) (Auto) 71.8% (40-74) Lymphocytes (%) (Auto) 21.1% (14-46) Monocytes (%) (Auto) 4.6% (4-12) Eosinophils (%) (Auto) 1.9% (0-5) Basophils (%) (Auto) 0.5% (0-3) Albumin 3.2g/dL (3.4-5.0) Lactic Acid Level 0.6mmol/L (0.4-2.0) Magnesium Level 1.6mg/dL (1.6-2.6) Test 07/26/16 03:05 07/27/16 03:25 07/28/16 05:00 Procalcitonin 4.12ng/mL (0.00-0.08) Prealbumin 10mg/dL (20-40) Sodium Level 143mEq/L (134-144) Potassium Level 3.4mEq/L (3.5-5.2) Chloride Level 100mEq/L (97-108) Carbon Dioxide Level 28mmol/L (18-29) Blood Urea Nitrogen 39mg/dL (8-27) Creatinine 4.31mg/dL (0.76-1.27) Estimat Glomerular Filtration Rate 14mL/min (>59) Glucose Level 128mg/dL (60-99) Calcium Level 8.9mg/dL (8.5-10.1) Phosphorus Level 3.6mg/dL (2.5-4.9) Discharge Medications Discharge Medications ([carb steady liquid]) 1 CANNISTER PO DAILY (Reported) Amino AC/Protein Hydr/Whey Pro (Liquacel Liquid Protein Packet) 16 Gram-90 Kcal/ 30 Ml Liquid.pkt 30 ML PO DAILY (Reported) Aspirin (Aspirin) 81 Mg Tablet 81 MG PO DAILY Prescribed by: KARY COLLAZO MD Atorvastatin Calcium (Atorvastatin Calcium) 20 Mg Tablet 20 MG PO HS (Reported) Budesonide/Formoterol 160-4.5 mcg Inh (Symbicort 160-4.5 mcg Inh) 1 Puff Inha 1 PUFF IH BID (Reported) rinse and spit following use. Carvedilol (Carvedilol) 3.125 Mg Tablet 3.125 MG PO BID (Reported) Cetirizine (Cetirizine) 5 Mg Tablet 10 MG PO QAM (Reported) Cyanocobalamin (Vitamin B12) 500 Mcg Tablet 1,000 MCG PO QAM (Reported) Gabapentin (Gabapentin) 100 Mg Capsule 100 MG PO BID (Reported) Isosorbide MN ER (Isosorbide MN ER) 30 Mg Tab.er.24h 30 MG PO QAM (Reported) Lactobacillus Acidophilus (Probiotic) 1 Each Capsule 1 EACH PO QAM (Reported) Lisinopril (Lisinopril) 20 Mg Tablet 20 MG PO QAM (Reported) HOLD FOR SBP < 100 MM HG Mirtazapine (Mirtazapine) 7.5 Mg Tablet 7.5 MG PO HS (Reported) Pantoprazole DR (Protonix) 40 Mg Tablet.dr 40 MG PO BID Prescribed by: KARY COLLAZO MD Vitamin B Complex/Vit C (Aurelia-Rustam Tablet) 1 Tab Tab 1 TAB PO QAM (Reported) Zinc Gluconate (Zinc) 50 Mg Tablet 50 MG PO QAM (Reported) As needed Guaifenesin/Dextromethorphan (Nicole-Tussin Dm Syrup) 100 Mg-10 Mg/5 Ml Syrup 5 ML PO Q4H PRN PRN For Cough (Reported) Hydralazine (Hydralazine) 10 Mg Tablet 10 MG PO QID PRN PRN For HYPERtension ( Reported) Ipratropium/Albuterol Sulfate (Iprat-Albut 0.5-3(2.5) mg/3 mL Inhalant Soln) 3 Ml Ampul.neb 3 ML IH Q4 PRN PRN For Shortness of Breath (Reported) Loperamide (Loperamide) 2 Mg Tablet 4 MG PO Q6H PRN PRN For Diarrhea or Loose Stool (Reported) Nitroglycerin SL (Nitroglycerin SL) 0.4 Mg Tab.subl 0.4 MG SL Q5MIN PRN PRN For Chest Pain (Reported) Polyethylene Glycol 3350 (Miralax) 17 Gm Powd.pack 17 GM PO DAILY PRN PRN For Constipation (Reported) Sennosides (Senna) 8.6 Mg Tablet 17.2 MG PO BID PRN PRN For Constipation ( Reported) Additional med instructions No medication changes. Antibiotics were completed prior to discharge. Followup Plan Follow-up plan Continue Sunday dialysis at [facility] Discharge Diet: Renal Diet Discharge Activity: Other (as per physical therapy staff at [facility]) Follow-up Provider: Divya Siegel MD Follow-up with PCP in: Other (as needed at [facility]) Time spent 35 min copies to: Divya Siegel MD, Jeffrey W MD Jul 28, 2016 10:09
--- NOTE | 2016-07-28 12:43 | PCM.PNNEPH ---
Subjective Date of Service Jul 28, 2016 Subjective Patient is seen during HD, stable BP, no new complaints today. Exam Vital Signs Vital Sign - Last Date Time Temp Pulse Resp B/P Pulse Ox O2 Delivery O2 Flow Rate FiO2 07/28/16 09:15 64 07/28/16 07:48 36.4 20 90 Room Air 07/28/16 03:00 2.00 Intake and Output 07/27/16 07/27/16 07/28/16 Cumulative From/Thru 15:00 23:00 07:00 07/23/16 19:52 - 07/28/16 06:56 Intake Total 150 ml 336 ml 1091 ml Output Total 1890 ml Balance 150 ml 336 ml -799 ml Intake Oral 150 ml 336 ml 541 ml IV Total 550 ml Output Urine Total 390 ml Ultrafiltrate 1500 ml # Voids 1 1 2 # Bowel Movements 1 2 6 Exam General: No acute distress, awake, alert, oriented x 3. HEENT: PERRLA, temporal wasting Neck: Supple, no JVD Cardiovascular: RRR Pulmonary: mild coarse breathing. no crackles noted. Abdomen: Bowel tones present. Soft, nontender, nondistended. No hepatosplenomegaly or masses appreciated. Extremities: No clubbing, cyanosis, edema, or lymphadenopathy appreciated. Skin: Normal temperature, turgor, and texture; stage II coccygeal ulcer noted by wound care. Lab and Diagnostics Result Diagram: 07/24/16 0330 07/28/16 0500 X-Rays, CTs and MRIs PROCEDURE: X-RAY CHEST ONE VIEW, PORTABLE ([id number]) IMPRESSION: 1. Bilateral pleural effusions, left greater than right, with compressive atelectasis or consolidation in the lung bases. 2. Increased pulmonary edema. Dictated by: Nate Zabala M.D. on 07/23/2016 at 21:32 PROCEDURE: X-RAY CHEST ONE VIEW ([id number]) IMPRESSION: 1. Bilateral pleural effusions redemonstrated, with compressive atelectasis or lung consolidation involving the lung bases. 2. Persistent widespread pulmonary edema. Dictated by: Mau ÁLVAREZ Interpreted: Haven Lim MD on 07/27/2016 at 8: 33 . Cardiac Echo Impressions Echocardiogram Report from 06/02/2016 Interpretation Summary The ejection fraction is estimated to be 60-65%. The left atrium is severely dilated. The mitral valve leaflets appear mildly thickened, but open well. The aortic valve is slightly calcified. There is mild tricuspid regurgitation. The right ventricular systolic pressure is estimated at 50 mmHg assuming a right atrial pressure of 3 mm Hg. Compared to the prior echo exam, there has been an increase in the severity of pulmonary hypertension. Mildly increased echogenicity of the myocardium is noted, this can sometimes be seen in infiltrative disorders such as amyloidosis. Electronically signed by: Sacha Paul on Reading Physician:06/02/2016 04:43 PM Plan Impression 1. ESRD on HD 3.5 hr, 4K, 35HCO3 DFR 600, BFR 400 UF 1-2L as tolerated Revaclear, AVF. 2. Healthcare-associated PNA 3. Anemia of CKD 4. COPD 5. Hypertension with hypertensive nephrosclerosis. Plan: Likely to be d/c'd after HD if stable. F/u with his primary economic research assistant. Francisco Boland MD Jul 28, 2016 12:43
[2016-07-28 13:17] VITALS: BP 177/72; PULSE 62; RESP 18
[2016-07-28 13:29] VITALS: BP 189/89; PULSE 66; RESP 20; O2SAT 92
[2016-07-28] MEDS: cefTRIAXone Inj 2,000 MG in Dextrose 5% Minibag Plus 50 ML IV SCH (13:42)
[2016-07-28] MEDS: Isosorbide Mononitrate 30 mg ER24 Tablet PO SCH (13:42)
== END 2016-07-28 15:15 | DRG 189 ==
LOC: SED 19:02 → PCC 22:17
PROVIDERS: ADMIT Internal Medicine; ATTEND Internal Medicine
PROC: 5A1D60Z (ICD-10-PCS; principal; 2016-07-24)
DX: J96.21 Acute and chronic respiratory failure with hypoxia (principal); N18.6 End stage renal disease; J18.9 Pneumonia, unspecified organism; E43 Unspecified severe protein-calorie malnutrition; G93.41 Metabolic encephalopathy; R64 Cachexia; Z68.1 Body mass index [BMI] 19.9 or less, adult; J44.0 Chronic obstructive pulmonary disease with (acute) lower respiratory infection; I12.0 Hypertensive chronic kidney disease with stage 5 chronic kidney disease or end stage renal disease; K22.10 Ulcer of esophagus without bleeding; F01.50 Vascular dementia, unspecified severity, without behavioral disturbance, psychotic disturbance, mood disturbance, and anxiety; J44.9 Chronic obstructive pulmonary disease, unspecified; Z99.2 Dependence on renal dialysis; D63.1 Anemia in chronic kidney disease; E78.5 Hyperlipidemia, unspecified; Z87.891 Personal history of nicotine dependence; Z66 Do not resuscitate; Z51.5 Encounter for palliative care; I25.118 Atherosclerotic heart disease of native coronary artery with other forms of angina pectoris; I27.2 Other secondary pulmonary hypertension; Y95 Nosocomial condition

== ENCOUNTER 2016-09-13 07:41 | Emergency (ER) | payer MEDICARE, MEDICAID ==
[~2016-09-13 07:41] MED LIST changes: -FRSM80T PO; -LEVO500T16 PO; -LOSA50TA37 PO; +MIRT7.5T8 PO; -SEVE800T7 PO
[2016-09-13 07:59] VITALS: BP 173/53; PULSE 73; RESP 19; O2SAT 87
--- NOTE | 2016-09-13 08:25 | ED.REPORT ---
HPI-Altered Mental Status Date of Service Sep 13, 2016 ED Provider: Liam Keller MD An 86 year old male with a history of ESRD on dialysis, hypertension, COPD, essential tremors, pneumonia, CAD, anemia, NSTEMI, TIA, dementia, delirium, hyperlipidemia and dysphagia is brought to the ED via EMS due to altered mental status. The pt was noted to be altered and weak yesterday, but was significantly worse this morning. His oxygen saturation was also low. At baseline, the pt is ambulatory and conversant. The pt resides at [facility]. He was last dialyzed on 09/11/2016. History is limited by pt condition. Nursing Notes Stated Complaint: WEAKNESS Chief Complaint: General Complaint Nursing Notes Reviewed: Yes ([employer], [employer] not reconciled) Allergies: Coded Allergies: No Known Allergies (Verified Allergy, Unknown, 09/13/16) Scheduled ([carb steady liquid]) 1 CANNISTER PO DAILY Amino AC/Protein Hydr/Whey Pro (Liquacel Liquid Protein Packet) 16 Gram-90 Kcal/ 30 Ml Liquid.pkt 30 ML PO DAILY Aspirin (Aspirin) 81 Mg Tablet 81 MG PO DAILY Atorvastatin Calcium (Atorvastatin Calcium) 20 Mg Tablet 20 MG PO HS Budesonide/Formoterol 160-4.5 mcg Inh (Symbicort 160-4.5 mcg Inh) 1 Puff Inha 1 PUFF IH BID rinse and spit following use. Carvedilol (Carvedilol) 3.125 Mg Tablet 3.125 MG PO BID Cetirizine (Cetirizine) 5 Mg Tablet 10 MG PO QAM Cyanocobalamin (Vitamin B12) 500 Mcg Tablet 1,000 MCG PO QAM Gabapentin (Gabapentin) 100 Mg Capsule 100 MG PO BID Isosorbide MN ER (Isosorbide MN ER) 30 Mg Tab.er.24h 30 MG PO QAM Lactobacillus Acidophilus (Probiotic) 1 Each Capsule 1 EACH PO QAM Lisinopril (Lisinopril) 20 Mg Tablet 20 MG PO QAM HOLD FOR SBP < 100 MM HG Mirtazapine (Mirtazapine) 7.5 Mg Tablet 7.5 MG PO HS Pantoprazole DR (Protonix) 40 Mg Tablet.dr 40 MG PO BID Vitamin B Complex/Vit C (Aurelia-Rustam Tablet) 1 Tab Tab 1 TAB PO QAM Zinc Gluconate (Zinc) 50 Mg Tablet 50 MG PO QAM Scheduled PRN Guaifenesin/Dextromethorphan (Nicole-Tussin Dm Syrup) 100 Mg-10 Mg/5 Ml Syrup 5 ML PO Q4H PRN PRN For Cough Hydralazine (Hydralazine) 10 Mg Tablet 10 MG PO QID PRN PRN For HYPERtension Ipratropium/Albuterol Sulfate (Iprat-Albut 0.5-3(2.5) mg/3 mL Inhalant Soln) 3 Ml Ampul.neb 3 ML IH Q4 PRN PRN For Shortness of Breath Loperamide (Loperamide) 2 Mg Tablet 4 MG PO Q6H PRN PRN For Diarrhea or Loose Stool Nitroglycerin SL (Nitroglycerin SL) 0.4 Mg Tab.subl 0.4 MG SL Q5MIN PRN PRN For Chest Pain Polyethylene Glycol 3350 (Miralax) 17 Gm Powd.pack 17 GM PO DAILY PRN PRN For Constipation Sennosides (Senna) 8.6 Mg Tablet 17.2 MG PO BID PRN PRN For Constipation General Time Seen by MD: 07:59 Chief Complaint Other (Altered mental status) Hx Obtained From: EMS Arrived By: Ambulance Sudden in Onset?: No Onset Occurred: 1 day ago Symptom Duration: Since onset Progression since Onset: Gradually worsening Recent Healthcare: Recent doctor visit, Recent hospitalization Similar Sx Previous: No Past Medical History Past Medical History Notes: PCP Dr. Siegel Stock Taker Dr. Lowe CODE STATUS: DNAR, DNI; comfort measures only last admit: July 23 through July 28, 2016 acute respiratory failure with hypoxia and suspected pneumonia, on chronic home O2 Past Medical History ESRD on dialysis M,W,F (AV fistula in LUE) TIA Dysphagia Benign prostatic hyperplasia Pneumonia Peripheral Vascular Disease with bilateral Internal Carotid Artery disease Stable angina COPD with severe emphysematous changes on chest CT in 06/2013 Chronic lung disease with fibrotic change specified in right chest on chest CT in 06/2013 CAD with h/o NSTEMI and 2 x drug-eluting stents placed in LAD on 05/26/[address] Clari Elizabeth -Echocardiogram performed 08/07/2013 showed an EF of 60-65%, and moderate dilatation of the left atrium Anemia of chronic disease secondary to renal failure Osteoporosis with pathological vertebral compression fractures. Urinary retention secondary to prostatism. Sepsis in 07/2013 Hyperlipidemia Hypertension Essential tremors Dementia possibly secondary to probable vascular dementia given h/o TIA Resting tremor Left hip fracture in 05/2013 Seasonal allergies Reports: GERD Past Surgical History AV fistula in LUE Left hip fracture repair Family History noncontributory Smoking History Former Smoker Social History Patient is DNR with limited interventions per nae [facility] at [facility] Alcohol Use: Denies alcohol use Drug Use: Denies drug use Other Social History: Good social support, Lives in fpc, Local resident Ambulatory Status Independent Review of Systems Unable to Obtain ROS Patient condition Physical Exam Initial Vital Signs Vital Signs (First) Date Time Temp Pulse Resp B/P Pulse Ox O2 Delivery O2 Flow Rate FiO2 09/13/16 07:59 36.8 73 19 173/53 87 Room Air 09/13/16 10:38 4 Initial VS: Reviewed, Vital signs abnormal General/Constitutional: Awake, Alert Appearance / Presentation: Positive: Cachectic appears ill interactive with nurses but not during exam not able to verbalize or provide history reportedly alert and interactive at baseline Head / Eyes: Atraumatic, Normocephalic, PERRL, EOMI Neck: Atraumatic, Supple, Full range of motion Respiratory / Chest: Atraumatic, Breath sounds = bilat Resp Distress / Stridor: Positive: Resp distress moderate crackles and diminished breath sounds Cardiovascular: Heart rate NL, Regular rhythm, Heart sounds NL no pitting edema Neurologic: No motor deficits, No sensory deficits not cooperative with focal exam ENT: Atraumatic, Airway patent, Mucous membranes moist Abdomen: Atraumatic, Soft, Non-tender Back: Atraumatic, Full range of motion Skin: Atraumatic, Color NL, No rash, Warm, Dry Psychiatric: Affect NL, Mood NL Upper Extremity / MS: Atraumatic, Full range of motion Lower Extremity / Pelvis / MS: Atraumatic, Full range of motion Interpretation & Diagnostics Lab Results Interpretation Result Diagram: 09/13/16 1045 09/13/16 1045 Test 09/13/16 10:45 White Blood Count 12.4th/mm3 (3.8-10.1) Red Blood Count 4.40mil/mm3 (4.40-5.80) Hemoglobin 13.6g/dL (13.8-17.2) Hematocrit 42.4% (41.0-50.0) Mean Corpuscular Volume 96.4fL (81-100) Mean Corpuscular Hemoglobin 30.9pg (27.0-35.0) Mean Corpuscular Hemoglobin Concent 32.1% (32.0-37.0) Red Cell Distribution Width 15.0% (12.3-15.4) Platelet Count 202bil/L (150-400) Neutrophils (%) (Auto) 77.5% (40-74) Lymphocytes (%) (Auto) 17.3% (14-46) Monocytes (%) (Auto) 3.7% (4-12) Eosinophils (%) (Auto) 0.9% (0-5) Basophils (%) (Auto) 0.4% (0-3) Sodium Level 136mEq/L (134-144) Potassium Level 5.0mEq/L (3.5-5.2) Chloride Level 92mEq/L (97-108) Carbon Dioxide Level 28mmol/L (18-29) Blood Urea Nitrogen 32mg/dL (8-27) Creatinine 4.80mg/dL (0.76-1.27) Estimat Glomerular Filtration Rate 12mL/min (>59) Glucose Level 84mg/dL (60-99) Calcium Level 9.6mg/dL (8.5-10.1) Phosphorus Level 4.6mg/dL (2.5-4.9) Magnesium Level 1.8mg/dL (1.6-2.6) Total Bilirubin 0.5mg/dL (0.0-1.2) Aspartate Amino Transf (AST/SGOT) 25U/L (0-50) Alanine Aminotransferase (ALT/SGPT) 10U/L (0-44) Alkaline Phosphatase 157U/L (25-160) Total Protein 7.8g/dL (6.4-8.4) Albumin 3.3g/dL (3.4-5.0) Hold Beck Top Tube Received (Received) Lab Results Interpretation: CBC mild leukocytosis CMP renal failure, chronic ECG Interpretation ECG Interpretation: normal sinus rhythm with a rate of 67 no acute ischemic changes no prior available for comparison Time: 09:00 Interpreted by: ED physician X-Ray Chest Interpretation Chest Xray Interpretation: IMPRESSION: 1. Bilateral mid and lower lung airspace opacities would be consistent with extensive atelectasis, aspiration, or bronchopneumonia. 2. Left greater than right dependent pleural effusions are of uncertain etiology. Dictated by: Winston Martin M.D. on 09/13/2016 at 9:30 Approved by: Winston Martin M.D. on 09/13/2016 at 9:32 Interpretation / Wet Read by: Interpret - Radiologist Re-Eval/Medical Decision Med Decision/Clinical Course This is an 86-year-old male transferred from a local senior care facility with altered mental status. The patient's unable to provide any history going the room he appears critically ill, side face mask, per short of breath, he lifts his arm up but cannot communicate to me. There is a small, cachectic chronically ill-appearing gentleman. When I talked to the fpc indicate he is normally up and alert and ambulate of a functional walker, but has had a decline over the past 24 hrs. Turns out he has had multiple recent illnesses, is on dialysis and due for dialysis today. He has had a somewhat slowly declining course in recent weeks, and has been discussion according the records about transition to appear Comfort Care. The fpc however indicates that he is "full code"-although he is sent in with a contradictory POLST form indicating do CPR in the setting arrest, and call comfort care otherwise. The ED RN got a report that the family was discussing transition full Comfort Care and discontinuing dialysis. The patient has a history of COPD, and received empiric albuterol Atrovent, chest x-ray and basic labs obtained were sorting out with sort of workup or intervention might be indicated. I have noticed that the palliative care team is involved in this case and consult them, ultimately able to reach the family who indicated they do indeed wish transitioned to appear comfort care-this involves discontinuing his dialysis. The patient's receiving symptomatic management some morphine. He is being admitted as he appears critically ill and has a high probability of not surviving. Case is discussed with the hospitaist. The palliative care team came and saw the patient written initial orders. Source of Hx: Old records Re-Evaluation/Progress : Time of Eval: 07:59 Re-Evaluation/Progress Note: Pt informed of the need for admission during the initial interview. The pt understands and agrees with the plan. All questions are addressed at this time. Consultation #1: Call Returned at: 08:49 Note: Spoke with Earl regarding pt's case. Additional pt history is obtained. Consultation #2: Referral / Consult Name: Enrrique Domingo MD Consulted With: Hospitalist Call Returned at: 11:20 Principal Programmer: Agrees with eval, Agrees with plan, Accepts admit Note: Spoke with Dr. Domingo, hospitalist, regarding pt's case. Dr. Domingo agrees with the evaluation and agrees to admit the pt. Differential Diagnosis: Negative: Carbon monoxide poisoning, Closed head injury , Congestive heart failure Counseled Regarding: Diagnosis, Lab results, Need for admission Patient Discharge & Departure Impression: Primary Impression: Altered mental status Altered mental status type: unspecified Qualified Code: R41.82 - Altered mental status, unspecified Additional Impressions: Respiratory failure Chronicity: unspecified Respiratory failure complication: unspecified whether with hypoxia or hypercapnia Qualified Code: J96.90 - Respiratory failure, unspecified, unspecified whether with hypoxia or hypercapnia Chronic renal failure Chronic kidney disease stage: stage 5 Qualified Code: N18.5 - Chronic kidney disease, stage 5 Disposition: ADMITTED TO HOSPITAL Discharge Condition All VS Reviewed: Yes Condition: Stable Referrals: Divya Siegel MD (PCP) Scribe Attestation Portions of this note were transcribed by Garcia Smith. I, Dr. Keller personally performed the history, physical exam and medical decision-making; I reviewed and confirmed the accuracy of the information in the transcribed note. copies to: Divya Siegel MD, Matthew F MD Sep 13, 2016 08:25 GARCIA SMITH Sep 13, 2016 08:35
[2016-09-13] MEDS ORDERED: Ipratropium 0.02% 0.5 mg/2.5 mL Inhalation Solution NEB ONE (08:55)
[2016-09-13] MEDS ORDERED: Albuterol 2.5 mg/3 mL Inhalation Solution NEB ONE (08:55)
--- NOTE | 2016-09-13 09:34 | DRSVH ---
PROCEDURE: X-RAY CHEST ONE VIEW, PORTABLE ([id number]) INDICATIONS: 86 year-old male with shortness of breath. TECHNIQUE: One view of the chest was acquired. COMPARISON: [facility], CR, XR CHEST 1VW, 07/26/2016, 17:33. [facility], CR, XR CHEST 1VW (PORTABLE), 07/23/2016, 20:13. [facility], CR, XR CHEST 1VW (PORTABLE), 05/14, 7:28. FINDINGS: Surgical changes and devices: None. Lungs and pleura: Left greater than right dependent pleural effusions are present. Bibasilar airspace opacities are also present. No pneumothorax. Mediastinum: Mediastinal contours appear normal. Heart size is normal given AP technique. Bones and chest wall: No suspicious bony lesions. Overlying soft tissues appear unremarkable. IMPRESSION: 1. Bilateral mid and lower lung airspace opacities would be consistent with extensive atelectasis, as piration, or bronchopneumonia. 2. Left greater than right dependent pleural effusions are of uncertain etiology. Dictated by: Winston Martin M.D. on 09/13/2016 at 9:30 Approved by: Winston Martin M.D. on 09/13/2016 at 9:32
[2016-09-13 10:38] VITALS: PULSE 98; RESP 21; O2SAT 97
[2016-09-13] MEDS ORDERED: Ondansetron 2 mg/mL 2 mL Inj IVPUSH PRN (10:50)
[2016-09-13] MEDS ORDERED: Artificial Tears 15 mL Ophthalmic Solution AFFECT_EYE PRN (10:50)
[2016-09-13] MEDS ORDERED: Glycopyrrolate 0.2 MG/ML 1mL Inj IVPUSH PRN (10:50)
[2016-09-13] MEDS ORDERED: Morphine 100 mg/100 mL NS 100 MG in IV Premix 1 EACH IV PRN (10:50)
[2016-09-13] MEDS ORDERED: Atropine 1% 5 mL Ophthalmic Solution PO PRN (10:50)
[2016-09-13 10:54] LABS: BASOPHILS % (AUTO) 0.4 % (0-3); EOSINOPHILS % (AUTO) 0.9 % (0-5); MONOCYTES % (AUTO) 3.7 % (4-12); Mean Corpuscular Hemoglobin 30.9 pg (27.0-35.0); Mean Corpuscular Volume 96.4 fL (81-100); NEUTROPHILS % (AUTO) 77.5 % (40-74); Platelet Count 202 bil/L (150-400)
[2016-09-13 11:18] VITALS: BP 99/37; PULSE 74; RESP 22
[2016-09-13 11:20] LABS: Magnesium 1.8 mg/dL (1.6-2.6); Phosphorus 4.6 mg/dL (2.5-4.9)
--- NOTE | 2016-09-13 11:33 | PCM.CONPAL ---
Date of Service Sep 13, 2016 Date of Hospital Admission: Date of Palliative Consult: Sep 13, 2016 Reason Palliative Care Consult: Other (comfort care) Hospital Unit @time of consult: Emergency Department Palliative Care Recommendation Returned several times through the day to recheck on patient. Comfort care orders updated as needed. Also spoke with his daughter by phone several times, updating her. He continued to deteriorate, though remained comfortable and without evidence of any distress. He peacefully at approximately 1300. I contacted his daughter by phone and updated her. Summary of palliative recommendations: -Symptom management (Pain/other)- transitioning to comfort care. Comfort care pathway medications ordered, including bolus/drip morphine as needed, lorazepam , medications for control of secretions, etc. I told his daughter Genna that I expect he will likely pass away here in the hospital in the next 1-2 days. Will consider return to SNF with hospice support if it appears he may survive longer than that. -DPOA/Advanced Directives/POLST- DO NOT RESUSCITATE/DO NOT INTUBATE/comfort -Family/emotional support- palliative medicine will continue to follow and provide support to the patient and his family Problems: End of Life Preferences Comfort care Disposition here in hospital Resuscitation Status Resuscitation Status: DNR/DNI:Do Not Resuscitate/Intubate POLST Updates/Changes Previous POLST?: Yes POLST Last Review Date: Sep 13, 2016 POLST Review Outcome: Form Voided . Advanced Care Planning Address: Comfort care Pain: None Symptom management: Drowsiness/sleepiness, Dyspnea Pt History History of Present Illness Patient well-known to the palliative service from prior admissions. When called to the emergency department to see him, I reviewed his records in the EMR in detail from his last several admissions. He had been transferred to ER today because of complaints of increasing dyspnea and decreased level of consciousness. He has continued to undergo intermittent hemodialysis while at SNF. In the emergency department I spoke with Dr. Keller. Documentation that came with the patient from SNF was internally inconsistent and also at odds with decisions made during his last hospitalization. Calls to the SNF had only muddied byers further. I therefore called his daughter Genna House in [place]. She immediately recognized my voice from our many conversations during his last admission and we spoke at length about his status since his last hospital discharge- see elsewhere for details. When I entereded the room patient was lying on ER gurney, appeared comfortable. He responded briefly to verbal stimulation and then went back to sleep. Denied any pain or other significant distress. Not able to give significant additional history. After my discussions with his daughter Genna (was also his POA) and will be for him to be admitted for comfort care. Past Medical History Significant PMH Noted: upper GI bleed with severe erosive esophagitis, Multiple esophageal ulcers in May 2016 acute encephalopathy, likely metabolic with infection, GIB Recurrent aspiration mild troponemia secondary to ESRD Community acquired pneumonia May 2016 Hypertension uncontrolled ESRD on HD,M,W,F (AV fistula in LUE) History of TIA Peripheral Vascular Disease with bilateral Internal Carotid Artery disease Stable angina COPD with severe emphysematous changes on chest CT in 06/2013 Anemia of chronic disease secondary to renal failure Osteoporosis with pathological vertebral compression fractures. Urinary retention secondary to prostatism. Sepsis in 07/2013 Hyperlipidemia Dementia possibly secondary to probable vascular dementia given h/o TIA Resting tremor Left hip fracture in 05/2013 Seasonal allergies GERD Dementia Surgical History AV fistula in E Left hip fracture repair Social History Occupation: Retired Family Members Issues: His daughter Genna is POA. She lives in [place] but says that they talk by phone very frequently. She has had multiple discussions with him over the last several weeks about his course and his continued deterioration. Within the last week they had made the decision that he was going to discontinue hemodialysis and transition to comfort care at his residential facility. Documentation had just been completed regarding his wishes. Genna had planned on visiting as soon as next week. I reviewed his presenting status with her. She immediately requested that, consistent with his and her wishes, that he be transitioned comfort care at this time. She did not want any additional aggressive evaluation or intervention, no dialysis, etc. She understands that without additional support and intervention he will likely in the next several days and she was accepting of this. Social Support: Locally limited Living Situation: SNF POLST at Time of Admission Previous POLST?: Yes Cardiopulmonary Resuscitation: CPR: Attempt Resuscitation Medical Interventions: Comfort Measures Only POLST Status: See plan (Comfort Care/DO NOT RESUSCITATE/DO NOT INTUBATE) Allergy Allergies Reviewed: Yes Medications Current Medications: Current Medications Morphine Sulfate 2 mg Q15MIN PRN IVPUSH; Start 09/13/16 at 10:50 Lorazepam 1 mg Q1H PRN IVPUSH; Start 09/13/16 at 10:50 Lorazepam 2 mg Q5M PRN IVPUSH; Start 09/13/16 at 10:50 Ondansetron HCl Start with 4 mg, if ... Q4H PRN IVPUSH; Start 09/13/16 at 10:50 Atropine Sulfate Start with 2 drops, if ... Q1H PRN PO; Start 09/13/16 at 10:50 ; Status UNV Glycopyrrolate Start with 0.2 mg, if ... Q1H PRN IVPUSH; Start 09/13/16 at 10:50 ; Status UNV Artificial Tears 1 drop Q1H PRN AFFECT_EYE; Start 09/13/16 at 10:50; Status UNV Scopolamine 1.5 mg Q3D TOPICAL; Start 09/13/16 at 10:55 Scheduled ([carb steady liquid]) 1 CANNISTER PO DAILY Amino AC/Protein Hydr/Whey Pro (Liquacel Liquid Protein Packet) 16 Gram-90 Kcal/ 30 Ml Liquid.pkt 30 ML PO DAILY Aspirin (Aspirin) 81 Mg Tablet 81 MG PO DAILY Atorvastatin Calcium (Atorvastatin Calcium) 20 Mg Tablet 20 MG PO HS Budesonide/Formoterol 160-4.5 mcg Inh (Symbicort 160-4.5 mcg Inh) 1 Puff Inha 1 PUFF IH BID rinse and spit following use. Carvedilol (Carvedilol) 3.125 Mg Tablet 3.125 MG PO BID Cetirizine (Cetirizine) 5 Mg Tablet 10 MG PO QAM Cyanocobalamin (Vitamin B12) 500 Mcg Tablet 1,000 MCG PO QAM Gabapentin (Gabapentin) 100 Mg Capsule 100 MG PO BID Isosorbide MN ER (Isosorbide MN ER) 30 Mg Tab.er.24h 30 MG PO QAM Lactobacillus Acidophilus (Probiotic) 1 Each Capsule 1 EACH PO QAM Lisinopril (Lisinopril) 20 Mg Tablet 20 MG PO QAM HOLD FOR SBP < 100 MM HG Mirtazapine (Mirtazapine) 7.5 Mg Tablet 7.5 MG PO HS Pantoprazole DR (Protonix) 40 Mg Tablet.dr 40 MG PO BID Vitamin B Complex/Vit C (Aurelia-Rustam Tablet) 1 Tab Tab 1 TAB PO QAM Zinc Gluconate (Zinc) 50 Mg Tablet 50 MG PO QAM Scheduled PRN Guaifenesin/Dextromethorphan (Nicole-Tussin Dm Syrup) 100 Mg-10 Mg/5 Ml Syrup 5 ML PO Q4H PRN PRN For Cough Hydralazine (Hydralazine) 10 Mg Tablet 10 MG PO QID PRN PRN For HYPERtension Ipratropium/Albuterol Sulfate (Iprat-Albut 0.5-3(2.5) mg/3 mL Inhalant Soln) 3 Ml Ampul.neb 3 ML IH Q4 PRN PRN For Shortness of Breath Loperamide (Loperamide) 2 Mg Tablet 4 MG PO Q6H PRN PRN For Diarrhea or Loose Stool Nitroglycerin SL (Nitroglycerin SL) 0.4 Mg Tab.subl 0.4 MG SL Q5MIN PRN PRN For Chest Pain Polyethylene Glycol 3350 (Miralax) 17 Gm Powd.pack 17 GM PO DAILY PRN PRN For Constipation Sennosides (Senna) 8.6 Mg Tablet 17.2 MG PO BID PRN PRN For Constipation Objective Findings Exam Vital Sign - Last Date Time Temp Pulse Resp B/P Pulse Ox O2 Delivery O2 Flow Rate FiO2 09/13/16 11:18 74 22 99/37 Room Air 09/13/16 10:38 97 4 09/13/16 07:59 36.8 Objective Frail, chronically ill-appearing man lying on ER [facility]. Vital signs noted. Skin pale, warm and dry. Head and neck exam without acute focal findings. Cachectic. Lungs with dependent crackles and scattered wheezes, heart sounds regular, abdomen scaphoid and nontender. Lab/Diagnostics Lab and Imaging results reviewed in detail in EMR. Time spent Total time 75 minutes; >50% face to face with patient and family, providing counselling regarding plans and recommendations, and in care coordination with his medical teams. All of the above total time spent counseling for advanced care planning with the patient's daughter/POA and providing end-of-life/comfort care to the patient copies to: Divya Siegel MD, David F MD Sep 13, 2016 11:33 Sal Recinos MD Sep 13, 2016 11:33
--- NOTE | 2016-09-13 13:19 | NUR ---
Palliative Care - Late Entry Palliative Care received verbal order from Dr Keller (ED) 09/13/16 to assist with goals of care. Patient arrived to [facility] ED this morning. He resides at a local SNF. Palliative Care has seen patient several times during previous admissions. Genna (daughter/POA) [phone] Cassia Barrett (daughter) [phone] Palliative Care to follow. Ute Villalpando Addendum: 09/13/16 at 1322 by UTE VILLALPANDO SS Per Dr Recinos, patient at 1300 today. Ute Villalpando
--- NOTE | 2016-09-13 13:30 | NUR ---
Expiration Pt experiencing irregular respirations from 1100 onward, with periods of apnea lasting >20 seconds. Did not appear to have any pain. Resting comfortably. Did not require any medication. He was unresponsive. Respirations slowed with longer periods of apnea and slowly heart rate. At 1255 he was pronounced by ER physician.
--- NOTE | 2016-09-13 14:55 | NUR ---
spiritual care: staff request Visited with pt who was dying in the ED. Spent some time with him talking to him and praying with him. Returned after pt had to accompany his daughter to say her goodbyes as well as a family friend. Provided support to family.
--- NOTE | 2016-09-13 17:25 | PCM.HPMED ---
Subjective Date of Service Sep 13, 2016 Primary Provider: Admitting Physician: Primary Care Physician: Divya Siegel MD Attending Physician: Chief Complaint: Sent from [facility] for altered mental status History of Present Illness: History not obtained because patient was on comfort care and with imminent per history from palliative physician Patient well-known to the palliative service from prior admissions. When called to the emergency department to see him, I reviewed his records in the EMR in detail from his last several admissions. He had been transferred to ER today because of complaints of increasing dyspnea and decreased level of consciousness. He has continued to undergo intermittent hemodialysis while at [facility]. In the emergency department I spoke with Dr. Keller. Documentation that came with the patient from [facility] was internally inconsistent and also at odds with decisions made during his last hospitalization. Calls to the SNF had only muddied byers further. I therefore called his daughter Genna [facility] in [place]. She immediately recognized my voice from our many conversations during his last admission and we spoke at length about his status since his last hospital discharge- see elsewhere for details. When I entereded the room patient was lying on ER gurney, appeared comfortable. He responded briefly to verbal stimulation and then went back to sleep. Denied any pain or other significant distress. Not able to give significant additional history. After my discussions with his daughter Genna (was also his POA) and will be for him to be admitted for comfort care. Review of Systems: Unable to obtain due to mental status Allergies Coded Allergies: No Known Allergies (Verified Allergy, Unknown, 09/13/16) Home Medications per ED note Scheduled ([carb steady liquid]) 1 CANNISTER PO DAILY Amino AC/Protein Hydr/Whey Pro (Liquacel Liquid Protein Packet) 16 Gram-90 Kcal/ 30 Ml Liquid.pkt 30 ML PO DAILY Aspirin (Aspirin) 81 Mg Tablet 81 MG PO DAILY Atorvastatin Calcium (Atorvastatin Calcium) 20 Mg Tablet 20 MG PO HS Budesonide/Formoterol 160-4.5 mcg Inh (Symbicort 160-4.5 mcg Inh) 1 Puff Inha 1 PUFF IH BID rinse and spit following use. Carvedilol (Carvedilol) 3.125 Mg Tablet 3.125 MG PO BID Cetirizine (Cetirizine) 5 Mg Tablet 10 MG PO QAM Cyanocobalamin (Vitamin B12) 500 Mcg Tablet 1,000 MCG PO QAM Gabapentin (Gabapentin) 100 Mg Capsule 100 MG PO BID Isosorbide MN ER (Isosorbide MN ER) 30 Mg Tab.er.24h 30 MG PO QAM Lactobacillus Acidophilus (Probiotic) 1 Each Capsule 1 EACH PO QAM Lisinopril (Lisinopril) 20 Mg Tablet 20 MG PO QAM HOLD FOR SBP < 100 MM HG Mirtazapine (Mirtazapine) 7.5 Mg Tablet 7.5 MG PO HS Pantoprazole DR (Protonix) 40 Mg Tablet.dr 40 MG PO BID Vitamin B Complex/Vit C (Aurelia-Rustam Tablet) 1 Tab Tab 1 TAB PO QAM Zinc Gluconate (Zinc) 50 Mg Tablet 50 MG PO QAM Scheduled PRN Guaifenesin/Dextromethorphan (Nicole-Tussin Dm Syrup) 100 Mg-10 Mg/5 Ml Syrup 5 ML PO Q4H PRN PRN For Cough Hydralazine (Hydralazine) 10 Mg Tablet 10 MG PO QID PRN PRN For HYPERtension Ipratropium/Albuterol Sulfate (Iprat-Albut 0.5-3(2.5) mg/3 mL Inhalant Soln) 3 Ml Ampul.neb 3 ML IH Q4 PRN PRN For Shortness of Breath Loperamide (Loperamide) 2 Mg Tablet 4 MG PO Q6H PRN PRN For Diarrhea or Loose Stool Nitroglycerin SL (Nitroglycerin SL) 0.4 Mg Tab.subl 0.4 MG SL Q5MIN PRN PRN For Chest Pain Polyethylene Glycol 3350 (Miralax) 17 Gm Powd.pack 17 GM PO DAILY PRN PRN For Constipation Sennosides (Senna) 8.6 Mg Tablet 17.2 MG PO BID PRN PRN For Constipation PMH per ED note ESRD on dialysis M,W,F (AV fistula in LUE) TIA Dysphagia Benign prostatic hyperplasia Pneumonia Peripheral Vascular Disease with bilateral Internal Carotid Artery disease Stable angina COPD with severe emphysematous changes on chest CT in 06/2013 Chronic lung disease with fibrotic change specified in right chest on chest CT in 06/2013 CAD with h/o NSTEMI and 2 x drug-eluting stents placed in LAD on 05/26/[address] Clari Elizabeth -Echocardiogram performed 08/07/2013 showed an EF of 60-65%, and moderate dilatation of the left atrium Anemia of chronic disease secondary to renal failure Osteoporosis with pathological vertebral compression fractures. Urinary retention secondary to prostatism. Sepsis in 07/2013 Hyperlipidemia Hypertension Essential tremors Dementia possibly secondary to probable vascular dementia given h/o TIA Resting tremor Left hip fracture in 05/2013 Seasonal allergies Reports: GERD Surgical History perED not e AV fistula in LUE Left hip fracture repair Family History Unable to obtain Social History Hx Alcohol Use: No Hx Substance Use: No Smoking Status: Former Smoker Exam Vital Signs Vital Sign - Last Date Time Temp Pulse Resp B/P Pulse Ox O2 Delivery O2 Flow Rate FiO2 09/13/16 11:18 74 22 99/37 Room Air 09/13/16 10:38 97 4 09/13/16 07:59 36.8 Exam Cachectic, in severe respiratory distress with use of accessory muscles open eyes when called Lab and Diagnostics Result Diagram: 09/13/16 1045 09/13/16 1045 Assessment & Plan 86 year old male with a history of ESRD on dialysis, hypertension, COPD, essential tremors, pneumonia, CAD, anemia, NSTEMI, TIA, dementia, delirium, hyperlipidemia and dysphagia is brought to the ED via EMS due to altered mental status. ED course : Patient was in severe respiratory distress. Palliative consulted. Palliative spoke with family and patient made comfort care. Patient was started on morphine drip when I was called. I evaluated patient and patient is severe respiratory distress. Admission order placed for comfort care but patient at 1300 in the emergency room before transfer to floor with only 1 hr in our care Possible cause of Acute hypoxic respiratory failure due to suspected pneumonia given chest x-ray finding Fluid overload from ESRD also contributing Resuscitation Status: DNR/DNI:Do Not Resuscitate/Intubate copies to: Divya Siegel MD, Melaku MD Sep 13, 2016 17:25
--- NOTE | 2016-09-13 17:29 | PCM.DC.MEX ---
Discharge Summary Date of Service Sep 13, 2016 Dates of Hospitalization Date of Hospital Admission 09/13/16 Date of Expiration: Sep 13, 2016 Time of Expiration: 13:00 Providers: Admitting Physician: Primary Care Physician: Divya Siegel MD Attending Physician: Diagnosis at Time of Acute hypoxic respiratory failure due to suspected pneumonia Additional Diagnosis ESRD on HD Fluid overload/pleural effusion Cachexia Consultations Palliative Dr Recinos Brief History per [facility] History not obtained because patient was on comfort care and with imminent per history from palliative physician Patient well-known to the palliative service from prior admissions. When called to the emergency department to see him, I reviewed his records in the EMR in detail from his last several admissions. He had been transferred to ER today because of complaints of increasing dyspnea and decreased level of consciousness. He has continued to undergo intermittent hemodialysis while at [facility]. In the emergency department I spoke with Dr. Keller. Documentation that came with the patient from SNF was internally inconsistent and also at odds with decisions made during his last hospitalization. Calls to the SNF had only muddied byers further. I therefore called his daughter Genna [facility] in [place]. She immediately recognized my voice from our many conversations during his last admission and we spoke at length about his status since his last hospital discharge- see elsewhere for details. When I entereded the room patient was lying on ER gurney, appeared comfortable. He responded briefly to verbal stimulation and then went back to sleep. Denied any pain or other significant distress. Not able to give significant additional history. After my discussions with his daughter Genna (was also his POA) and will be for him to be admitted for comfort care. Hospital Course 86 year old male with a history of ESRD on dialysis, hypertension, COPD, essential tremors, pneumonia, CAD, anemia, NSTEMI, TIA, dementia, delirium, hyperlipidemia and dysphagia is brought to the ED via EMS due to altered mental status. ED course : Patient was in severe respiratory distress. Palliative consulted. Palliative spoke with family and patient made comfort care. Patient was started on morphine drip when I was called. I evaluated patient and patient is severe respiratory distress. Admission order placed for comfort care but patient at 1300 in the emergency room before transfer to floor with only 1 hr in our care Possible cause of Acute hypoxic respiratory failure due to suspected pneumonia given chest x-ray finding Fluid overload from ESRD also contributing Exam Test 09/13/16 10:45 White Blood Count 12.4th/mm3 (3.8-10.1) Red Blood Count 4.40mil/mm3 (4.40-5.80) Hemoglobin 13.6g/dL (13.8-17.2) Hematocrit 42.4% (41.0-50.0) Mean Corpuscular Volume 96.4fL (81-100) Mean Corpuscular Hemoglobin 30.9pg (27.0-35.0) Mean Corpuscular Hemoglobin Concent 32.1% (32.0-37.0) Red Cell Distribution Width 15.0% (12.3-15.4) Platelet Count 202bil/L (150-400) Neutrophils (%) (Auto) 77.5% (40-74) Lymphocytes (%) (Auto) 17.3% (14-46) Monocytes (%) (Auto) 3.7% (4-12) Eosinophils (%) (Auto) 0.9% (0-5) Basophils (%) (Auto) 0.4% (0-3) Sodium Level 136mEq/L (134-144) Potassium Level 5.0mEq/L (3.5-5.2) Chloride Level 92mEq/L (97-108) Carbon Dioxide Level 28mmol/L (18-29) Blood Urea Nitrogen 32mg/dL (8-27) Creatinine 4.80mg/dL (0.76-1.27) Estimat Glomerular Filtration Rate 12mL/min (>59) Glucose Level 84mg/dL (60-99) Calcium Level 9.6mg/dL (8.5-10.1) Phosphorus Level 4.6mg/dL (2.5-4.9) Magnesium Level 1.8mg/dL (1.6-2.6) Total Bilirubin 0.5mg/dL (0.0-1.2) Aspartate Amino Transf (AST/SGOT) 25U/L (0-50) Alanine Aminotransferase (ALT/SGPT) 10U/L (0-44) Alkaline Phosphatase 157U/L (25-160) Total Protein 7.8g/dL (6.4-8.4) Albumin 3.3g/dL (3.4-5.0) Hold Beck Top Tube Received (Received) Enrrique Domingo MD Sep 13, 2016 17:29
--- NOTE | 2016-09-14 14:01 | NUR ---
Palliative care note D/A: Pt in ED on 09/13/16, after being followed by Dr. Recinos. Review of chart for stats reveals that pt was being followed by [facility]. Phone call to [facility] intake and leave msg that [facility] has and no further need to follow him. P: No further need for PC services. Viktoria AWAN, CCM
== END 2016-09-13 12:55 | disposition expired ==
LOC: SED 07:41 → EDBD 07:41 → SED 12:55
DX: R41.82 Altered mental status, unspecified (principal); J96.90 Respiratory failure, unspecified, unspecified whether with hypoxia or hypercapnia; N18.5 Chronic kidney disease, stage 5; I12.0 Hypertensive chronic kidney disease with stage 5 chronic kidney disease or end stage renal disease; J44.9 Chronic obstructive pulmonary disease, unspecified; I25.10 Atherosclerotic heart disease of native coronary artery without angina pectoris; D64.9 Anemia, unspecified; I25.2 Old myocardial infarction; F03.90 Unspecified dementia, unspecified severity, without behavioral disturbance, psychotic disturbance, mood disturbance, and anxiety; E78.5 Hyperlipidemia, unspecified; K21.9 Gastro-esophageal reflux disease without esophagitis; Z87.01 Personal history of pneumonia (recurrent); Z66 Do not resuscitate; Z99.2 Dependence on renal dialysis; Z86.73 Personal history of transient ischemic attack (TIA), and cerebral infarction without residual deficits; Z87.891 Personal history of nicotine dependence; Z79.82 Long term (current) use of aspirin
CPT/HCPCS: 36415; 71010; 80053; 83735; 84100; 85025; 93005; 94644; 94799; 96374; 99285; J2270; J7613